=== PATIENT | female | born 1960 | race Caucasian/White ===

== ENCOUNTER → 2017-01-14 | Outpatient (CLI) | payer OTHER ==
[2014-10-18 19:39] VITALS: BP 114/58
[~2017-01-14] MED LIST: ALBU8.5H6 INH; ATROVENT HFA12.9 GM IH; BENZ100C PO; CARV3.122 PO; CYCL10TA2 PO; FLUT10.6 IH; GUAI600T47 PO; INSU100I16 SQ; LOSA100T6 PO; METF-620 PO; MOME13HF IH
--- NOTE | 2017-01-14 16:19 | RAD ---
EXAM: Chest 2 views. HISTORY: Cough, chronic obstructive pulmonary disease. COMPARISON: 10/18/2014. FINDINGS: Frontal and lateral views of the chest are obtained. There is hyperinflation without hemidiaphragmatic flattening. There are mild interstitial opacities in the bases. There is no pneumothorax or pleural effusion. The heart is not enlarged. Cholecystectomy clips are noted. IMPRESSION: 1. Hyperinflation without hemidiaphragmatic flattening. 2. Mild basilar interstitial opacities. Correlate for mild pulmonary edema or interstitial lung disease.
== END | disposition home or self-care (01) ==
LOC: RAD 12:58
PROVIDERS: ATTEND Internal Medicine
DX: J44.9 Chronic obstructive pulmonary disease, unspecified (principal); J98.11 Atelectasis
CPT/HCPCS: 71020

== ENCOUNTER → 2017-06-12 | Outpatient (CLI) | payer OTHER ==
[2014-10-18 19:39] VITALS: BP 114/58
--- NOTE | 2017-06-12 15:52 | RAD ---
2 view CXR: Clinical indications: Right-sided chest pain. Comparison: January 14, 2017 Findings: No acute lung infiltrate or pleural effusion or pulmonary edema or lung mass or pneumothorax is seen. The heart size, pulmonary vasculature, mediastinum and both brii are unremarkable. The osseous structures appear intact. Impression: No acute radiographic abnormality is seen.
--- NOTE | 2017-06-12 16:01 | RAD ---
EXAM: Right ribs 4 views. HISTORY: Right chest pain, fall. COMPARISON: 06/12/2017. FINDINGS: There are no displaced right rib fractures. There is no pneumothorax or pleural effusion. Glenohumeral osteoarthritis is mild. Acromioclavicular osteoarthritis is moderate. Cholecystectomy clips are noted. There are atherosclerotic calcifications of the aorta. IMPRESSION: 1. No displaced right rib fracture.
== END | disposition home or self-care (01) ==
LOC: RAD 12:26
PROVIDERS: ATTEND Internal Medicine
DX: I70.0 Atherosclerosis of aorta (principal); M19.011 Primary osteoarthritis, right shoulder; R07.81 Pleurodynia; Z91.81 History of falling
CPT/HCPCS: 71020; 71100

== ENCOUNTER → 2018-04-09 | Outpatient (CLI) | payer OTHER ==
[2014-10-18 19:39] VITALS: BP 114/58
[~2018-04-09] MED LIST changes: -LOSA100T6 PO; +LOSA100T7 PO; -METF-620 PO; +METF10007 PO
--- NOTE | 2018-04-09 14:21 | RAD ---
DATE: 04/09/2018 EXAM: MAMMO NICK SCREENING BILATERAL HISTORY: Routine screening COMPARISON: 11/25/2012 This study was interpreted with the benefit of Computerized Aided Detection (CAD). Breast Density: FATTY The breast parenchyma is primarily fatty replaced. Breast parenchyma level density A. FINDINGS: 2-D and 3-D tomosynthesis imaging was performed in CC and MLO projections. No new or enlarging breast densities are seen. Minimal benign type calcifications present. No suspicious microcalcifications have developed. IMPRESSION: Stable mammograms without evidence of malignancy. BI-RADS CATEGORY: 2 BENIGN FINDING(S) RECOMMENDED FOLLOW-UP: 12M 12 MONTH FOLLOW-UP PQRS compliance statement: Patient information was entered into a reminder system with a target due date for the next mammogram. Mammography is a sensitive method for finding small breast cancers, but it does not detect them all and is not a substitute for careful clinical examination. A negative mammogram does not negate a clinically suspicious finding and should not result in delay in biopsying a clinically suspicious abnormality. "Our facility is accredited by the [employer] Mammography Program."
== END | disposition home or self-care (01) ==
LOC: MAMMO 10:09
PROVIDERS: ATTEND Internal Medicine
DX: Z12.31 Encounter for screening mammogram for malignant neoplasm of breast (principal); M19.011 Primary osteoarthritis, right shoulder; J44.9 Chronic obstructive pulmonary disease, unspecified; Z88.1 Allergy status to other antibiotic agents
CPT/HCPCS: 77063; 77067

== ENCOUNTER 2018-08-08 14:14 | Emergency (ER) | payer OTHER ==
[~2018-08-08] VITALS: Ht 175.3 cm; Wt 102.1 kg
[~2018-08-08 14:14] MED LIST changes: +CARV3.1210 PO; -CARV3.122 PO; +LOSA100T14 PO; -LOSA100T7 PO
[2018-08-08] MEDS ORDERED: IPRATRPIUM/ALBUTEROL 0.5/2.5MG 3 ML NEBU. NEB ONE (14:30)
[2018-08-08 14:53] LABS: CALCIUM 8.4 mg/dL (8.5-10.1); CREATININE 1.1 mg/dL (0.6-1.0); GFR 51.4; POTASSIUM 3.6 mmol/L (3.5-5.1)
[2018-08-08 14:53] LABS: BASO % 1 % (0-3); EOS % 0 % (0-3); HEMATOCRIT 34.4 % (36.0-47.0); HEMOGLOBIN 12.7 g/dL (12.0-15.5); LYMPH # 0.9 x10^3/uL (1.0-4.8); LYMPH % 12 % (24-48); MEAN CORPUSCULAR HEMOGLOBIN 36 pg (25-35); MEAN CORPUSCULAR HGB CONC 37 g/dL (31-37); MEAN CORPUSCULAR VOLUME 98 fL (79-100); MONO # 0.7 x10^3/uL (0.0-1.1); MONO % 10 % (0-9); NEUT # 5.4 x10^3uL (1.8-7.7); NEUT % 77 % (31-73); PLATELET COUNT 215 x10^3/uL (140-400); RED BLOOD COUNT 3.53 x10^6/uL (3.50-5.40); RED CELL DISTRIBUTION WIDTH 15.2 % (11.5-14.5); WHITE BLOOD COUNT 6.9 x10^3/uL (4.0-11.0)
[2018-08-08 14:53] LABS: BASE EXCESS ABG 0 mmol/L (-3-3); HCO3 ABG 23 mmol/L (21-28); PCO2 ABG 32 mmHg (35-46); PO2 ABG 55 mmHg (75-108); SAT O2 ABG 91 % (92-99)
[2018-08-08 14:57] LABS: FIO2 ABG 21%
[2018-08-08 14:58] LABS: ALBUMIN 3.2 g/dL (3.4-5.0); ALBUMIN/GLOBULIN RATIO 0.7 (1.0-1.7); TOTAL BILIRUBIN 0.9 mg/dL (0.2-1.0); TOTAL PROTEIN 7.5 g/dL (6.4-8.2)
--- NOTE | 2018-08-08 15:04 | RAD ---
CHEST AP ONLY History: SHORT OF AIR. Comparison: June 12, 2017 Cardiomediastinal silhouette: Not grossly enlarged. Lungs: No focal airspace consolidation. Pleura: No evidence of pleural effusion. Pneumothorax: None visualized Support Devices: None Degenerative changes at the shoulders Impression: No evidence of consolidating infiltrate Electronically signed by: Perfecto Truong MD (08/08/2018 3:00 PM) [facility]
--- NOTE | 2018-08-08 15:34 | EKG ---
[facility] [address] [place] [address] Test Date: 2018-08-08 Test Time: 14:22:24 Pat Name: MERON DAVIS Department: Room: Gender: F [employer]: : 1960 Requested By: DANIEL CALVILLO Order Number: [id number] Reading MD: Rajeev Munson Measurements Intervals [place] Rate: 92 P: 56 CA: 160 QRS: 49 QRSD: 74 T: 43 QT: 346 QTc: 433 Interpretive Statements SINUS RHYTHM ATRIAL PREMATURE COMPLEX(ES) NONSPECIFIC ST-T WAVE CHANGES. Electronically Signed On 08-17-2018 10:25:38 [employer] by Rajeev Munson
[2018-08-08] MEDS ORDERED: FUROSEMIDE 40 MG/4 ML VIAL. IVP ONE (15:45)
[2018-08-08] MEDS ORDERED: ALBU2.5V8 INH (16:14)
[2018-08-08] MEDS ORDERED: CEPH-264 PO (16:14)
[2018-08-08] MEDS ORDERED: FURO-69 PO (16:14)
[2018-08-08] MEDS ORDERED: PRED50TA PO (16:14)
--- NOTE | 2018-08-08 16:14 | PHYS DOC ---
Past Medical History Past Medical History: COPD, Diabetes-Type II, Hypertension Past Surgical History: Cholecystectomy, , Hysterectomy, Other Additional Past Surgical Histo: D&C, bladder lift Alcohol Use: None Drug Use: None Adult General Chief Complaint Chief Complaint: SHORTNESS OF BREATH HPI HPI Patient is a 57 year old male with history of COPD presents with progressive shortness of breath over the past several days. Patient reports productive sputum with yellow-green mucus. Denies fever chills, nausea vomiting or sweats. Reports chest tightness denies chest pain. Does report increased fluid retention and peripheral edema. No nausea vomiting or sweats. No abdominal pain. No history of CAD, CHF, DVT or PE. No other acute symptoms or complaints. [] Review of Systems Review of Systems Review symptoms as per history of present illness. All other review symptoms are negative. All other systems were reviewed and found to be within normal limits, except as documented in this note. Current Medications Current Medications Current Medications Medications (Trade) Dose Ordered Sig/Gilbert Start Time Stop Time Status Last Admin Dose Admin Albuterol/ Ipratropium (Duoneb) 3 ml 1X ONCE 08/08/18 14:30 08/08/18 14:31 DC 08/08/18 14:47 3 ML Furosemide (Lasix) 40 mg 1X ONCE 08/08/18 15:45 08/08/18 15:46 DC Allergies Allergies Allergies Coded Allergies Type Severity Reaction Last Updated Verified Nitrofurantoin Macrocrystal Allergy Severe Hives 07/31/13 Yes doxycycline Allergy Severe Hives 07/31/13 Yes nitrofurantoin Allergy Severe Hives 07/31/13 Yes Penicillins Allergy Intermediate 03/25/14 Yes Physical Exam Physical Exam Constitutional: Well developed, well nourished, no acute distress, non-toxic appearance. [] HENT: Normocephalic, atraumatic, bilateral external ears normal, oropharynx moist, no oral exudates, nose normal. [] Eyes: PERRLA, EOMI. [] Neck: Normal range of motion, no tenderness. [] Cardiovascular:Heart rate regular rhythm. [] Lungs & Thorax: Patient's nonlabored diminished coarse rhonchi bilaterally with occasional rhonchi. No rales or wheezes.[] Abdomen: Bowel sounds normal, soft, no tenderness. [] Skin: Warm, dry. [] Back: No tenderness. [] Extremities: No tenderness, negative Homans sign. [] Neurologic: Alert and oriented X 3, normal motor function, normal sensory function, no focal deficits noted. [] Psychologic: Affect normal, judgement normal, mood normal. [] Current Patient Data Vital Signs Vital Signs Date Time Temp Pulse Resp B/P (MAP) Pulse Ox O2 Delivery O2 Flow Rate FiO2 08/08/18 14:47 94 Room Air 08/08/18 14:14 98.6 98 20 145/67 (93) 98.6 Lab Values Laboratory Tests Test 08/08/18 14:24 08/08/18 14:30 08/08/18 14:45 O2 Saturation 91 % (92-99) L Arterial Blood pH 7.47 (7.35-7.45) H Arterial Blood pCO2 at Patient Temp 32 mmHg (35-46) L Arterial Blood pO2 at Patient Temp 55 mmHg (75-108) L Arterial Blood HCO3 23 mmol/L (21-28) Arterial Blood Base Excess 0 mmol/L (-3-3) FiO2 21% Sodium Level 137 mmol/L (136-145) Potassium Level 3.6 mmol/L (3.5-5.1) Chloride Level 100 mmol/L (98-107) Carbon Dioxide Level 28 mmol/L (21-32) Anion Gap 9 (6-14) Blood Urea Nitrogen 8 mg/dL (7-20) Creatinine 1.1 mg/dL (0.6-1.0) H Estimated GFR (Cockcroft-Gault) 51.4 BUN/Creatinine Ratio 7 (6-20) Glucose Level 185 mg/dL (70-99) H Calcium Level 8.4 mg/dL (8.5-10.1) L Total Bilirubin 0.9 mg/dL (0.2-1.0) Aspartate Amino Transferase (AST) 23 U/L (15-37) Alanine Aminotransferase (ALT) 19 U/L (14-59) Alkaline Phosphatase 167 U/L (46-116) H Troponin I Quantitative < 0.017 ng/mL (0.000-0.055) UE-Dcn-S-Type Natriuretic Peptide 2461 pg/mL (0-124) H Total Protein 7.5 g/dL (6.4-8.2) Albumin 3.2 g/dL (3.4-5.0) L Albumin/Globulin Ratio 0.7 (1.0-1.7) L White Blood Count 6.9 x10^3/uL (4.0-11.0) Red Blood Count 3.53 x10^6/uL (3.50-5.40) Hemoglobin 12.7 g/dL (12.0-15.5) Hematocrit 34.4 % (36.0-47.0) L Mean Corpuscular Volume 98 fL (79-100) Mean Corpuscular Hemoglobin 36 pg (25-35) H Mean Corpuscular Hemoglobin Concent 37 g/dL (31-37) Red Cell Distribution Width 15.2 % (11.5-14.5) H Platelet Count 215 x10^3/uL (140-400) Neutrophils (%) (Auto) 77 % (31-73) H Lymphocytes (%) (Auto) 12 % (24-48) L Monocytes (%) (Auto) 10 % (0-9) H Eosinophils (%) (Auto) 0 % (0-3) Basophils (%) (Auto) 1 % (0-3) Neutrophils # (Auto) 5.4 x10^3uL (1.8-7.7) Lymphocytes # (Auto) 0.9 x10^3/uL (1.0-4.8) L Monocytes # (Auto) 0.7 x10^3/uL (0.0-1.1) Eosinophils # (Auto) 0.0 x10^3/uL (0.0-0.7) Basophils # (Auto) 0.0 x10^3/uL (0.0-0.2) Laboratory Tests 08/08/18 14:45 Laboratory Tests 08/08/18 14:30 EKG EKG EKG: Reviewed[] Radiology/Procedures Radiology/Procedures [CXR: NAD per radiology report] Course & Med Decision Making Course & Med Decision Making Pertinent Labs and Imaging studies reviewed. (See chart for details) [Acute COPD exacerbation with new onset congestive heart failure. Hospital admission offered for further cardiac evaluation, treatment and risk stratification. Patient verbalizes increased risks for premature discharge from the/hospital. She agrees to close follow-up with her PCP. Return precautions reviewed.] Dragon Disclaimer Dragon Disclaimer This electronic medical record was generated, in whole or in part, using a voice recognition dictation system. Departure Departure Impression: Primary Impression: Acute exacerbation of chronic obstructive airways disease Additional Impression: Congestive heart failure Disposition: 01 HOME, SELF-CARE Condition: IMPROVED Referrals: SAAD FOX MD (PCP) Patient Instructions: Chronic Obstructive Pulmonary Disease Exacerbation, Pulmonary Edema, [id number] Additional Instructions: You were evaluated emergency department for shortness of breath he related to combination of acute bronchitis, with COPD exacerbation and new onset congestive heart failure. It is important that you take current medications as directed and you follow up with your PCP in the next 2-3 days for reevaluation. In the meantime, return to the ED if new or worsening symptoms. Scripts Albuterol Sulfate (Proair Hfa) 8.5 Gm Hfa.aer.ad 1 PUFF INH PRN Q6HRS PRN for SHORTNESS OF BREATH for 7 Days, #1 INHALER Prov: DANIEL CALVILLO DO 08/08/18 Furosemide (LASIX) 20 Mg Tablet 1 TAB PO Q12HR, #10 TAB 1 Refill Prov: DANIEL CALVILLO DO 08/08/18 Prednisone (PREDNISONE) 50 Mg Tablet 1 TAB PO DAILY, #5 TAB Prov: DANIEL CALVILLO DO 08/08/18 Cephalexin (KEFLEX) 500 Mg Capsule 1 CAP PO TID, #30 CAP Prov: DANIEL CALVILLO DO 08/08/18 Problem Qualifiers DANIEL CALVILLO DO Aug 08, 2018 16:14
[2018-08-08 16:35] VITALS: BP 138/63
[2018-08-13] MEDS ORDERED: TRAM50TA PO (15:56)
[2018-08-15] MEDS ORDERED: PRED20TA PO (11:44)
[2018-08-15] MEDS ORDERED: AZIT250T6 PO (11:44)
== END 2018-08-08 16:45 | disposition home or self-care (01) ==
LOC: ER 14:14
DX: J44.1 Chronic obstructive pulmonary disease with (acute) exacerbation (principal); I11.0 Hypertensive heart disease with heart failure; I50.9 Heart failure, unspecified; E11.9 Type 2 diabetes mellitus without complications; Z88.0 Allergy status to penicillin; Z88.8 Allergy status to other drugs, medicaments and biological substances
CPT/HCPCS: 36415; 36600; 71045; 80053; 82805; 83880; 84484; 85025; 93005; 94640; 96374; 99284; J1940; J7620

== ENCOUNTER → 2018-12-04 | Outpatient (CLI) | payer OTHER ==
[2018-08-15 15:00] VITALS: BP 129/71
[~2018-12-04] MED LIST changes: +ALBU2.5V8 INH; +AZIT250T6 PO; +CEPH-264 PO; +FURO-69 PO; +PRED20TA PO; +PRED50TA PO; +TRAM50TA PO
--- NOTE | 2018-12-04 12:32 | RAD ---
Examination: CT chest without contrast HISTORY: History of lung nodule COMPARISON: 10/25/2013 TECHNIQUE: Axial CT images of the chest were performed without contrast. Coronal and sagittal reformats are performed. Exposure: One or more of the following individualized dose reduction techniques were utilized for this examination: 1. Automated exposure control 2. Adjustment of the mA and/or kV according to patient size 3. Use of iterative reconstruction technique FINDINGS: The central airways are patent. The heart size grossly appears unremarkable. Coronary artery calcifications identified. Few calcified mediastinal lymph nodes identified. Emphysematous changes identified in the right and left upper lobes of the lung. There is a 7 mm nodule identified in the left lower lobe of the lung abutting the pleura similar to prior exam. No evidence of pleural effusion or pneumothorax. The visualized noncontrasted liver, spleen, adrenals grossly appears unremarkable. Moderate degenerative changes thoracic spine. IMPRESSION: 1. 7 mm nodule identified in the left lower lobe of the lung abutting the pleura similar to prior exam. 2. Bilateral lung emphysematous changes. Electronically signed by: Jaun Eubanks MD (12/04/2018 12:29 PM) [id number]
== END | disposition home or self-care (01) ==
LOC: CT 11:45
PROVIDERS: ATTEND Internal Medicine Pulmonary Disease
DX: J43.8 Other emphysema (principal); R91.1 Solitary pulmonary nodule; I89.8 Other specified noninfective disorders of lymphatic vessels and lymph nodes; I25.10 Atherosclerotic heart disease of native coronary artery without angina pectoris; M47.894 Other spondylosis, thoracic region
CPT/HCPCS: 71250

== ENCOUNTER → 2019-02-17 | Outpatient (CLI) | payer OTHER ==
[2018-08-15 15:00] VITALS: BP 129/71
--- NOTE | 2019-02-17 14:34 | RAD ---
Ultrasound venous Doppler INDICATION:Left leg pain TECHNIQUE: Grayscale, color Doppler and spectral waveform ultrasound images of the left lower extremity deep veins obtained. COMPARISON: None FINDINGS: The interrogated deep veins are compressible and demonstrate evidence of blood flow with normal respiratory variation and response to augmentation. IMPRESSION: No sonographic evidence of acute DVT of the left lower extremity deep veins. Electronically signed by: Jaylen Young DO (02/17/2019 2:31 PM) [facility]
--- NOTE | 2019-02-17 14:55 | RAD ---
Indication: Pain. Fall TECHNIQUE: 3 views of the left foot COMPARISON: None Findings/ Impression: No dislocation. Small plantar and dorsal calcaneal spurs noted. Mild foot edema. Small calcific density adjacent to the medial malleolus may represent an avulsion fracture. Clinically correlate with focal tenderness. Electronically signed by: Jaylen Young DO (02/17/2019 2:52 PM) [facility]
== END | disposition home or self-care (01) ==
LOC: US 13:15
PROVIDERS: ATTEND Internal Medicine
DX: M77.32 Calcaneal spur, left foot (principal); M25.475 Effusion, left foot; W19.XXXA Unspecified fall, initial encounter; Y93.89 Activity, other specified; Y92.89 Other specified places as the place of occurrence of the external cause; Y99.8 Other external cause status
CPT/HCPCS: 73630; 93971

== ENCOUNTER → 2019-03-19 | Outpatient (CLI) | payer OTHER ==
[2018-08-15 15:00] VITALS: BP 129/71
[~2019-03-19] MED LIST changes: +CONTRAST GIVEN. MC PRN; +IOHEXOL 240 MG/ML 50ML VIAL. PO ONE; +IOHEXOL 300 MG/ML 100ML VIAL. IV ONE
--- NOTE | 2019-03-19 15:10 | RAD ---
EXAM: CT Abdomen and Pelvis with IV contrast CLINICAL HISTORY: Abdominal pain. COMPARISON: none TECHNIQUE: Helical CT of the abdomen and pelvis was performed following the administration of intravenous contrast. Axial, coronal and sagittal reformatted images were generated. PQRS compliance statement - One or more of the following individualized dose reduction techniques were utilized for this study: 1. Automated exposure control 2. Adjustment of the mA and/or kV according to patient size 3. Use of iterative reconstruction technique FINDINGS: Lower chest: Lung bases are clear. Abdomen and Pelvis: Hepatic hypoattenuation may be seen with hepatic steatosis. Calcified granuloma are seen within the liver and spleen. No focal liver lesion. Accounting for postcholecystectomy change, no biliary ductal dilatation. Pancreas is unremarkable. Adrenal glands are normal. Symmetric nephrograms. Nonobstructing right lower pole renal calculus measures 1.1 cm. No hydronephrosis. No hydroureter. Bilateral extrarenal pelves are seen. Moderate to large volume colonic stool content is seen. No evidence for bowel obstruction. No abdominal or pelvic ascites. No abdominal or pelvic lymphadenopathy. Dense atherosclerotic calcifications of the aorta are seen. There has been a hysterectomy. Bones: Decreased bone mineral density. Degenerative changes of the spine are seen. IMPRESSION: 1. Nonobstructing right lower pole renal calculus. No ureteral or bladder calculus. 2. No hydronephrosis or hydroureter. 3. No evidence of bowel obstruction. 4. Hepatic hypoattenuation likely hepatic steatosis. 5. Dense atherosclerotic calcifications of the aorta Electronically signed by: Alden Ross MD (03/19/2019 3:07 PM) [facility]
== END | disposition home or self-care (01) ==
LOC: CT 15:59
PROVIDERS: ATTEND Internal Medicine
DX: N20.0 Calculus of kidney (principal); K75.3 Granulomatous hepatitis, not elsewhere classified; D73.89 Other diseases of spleen; I70.0 Atherosclerosis of aorta; M47.819 Spondylosis without myelopathy or radiculopathy, site unspecified; J44.9 Chronic obstructive pulmonary disease, unspecified; I10 Essential (primary) hypertension; E11.9 Type 2 diabetes mellitus without complications; F17.200 Nicotine dependence, unspecified, uncomplicated; Z90.710 Acquired absence of both cervix and uterus; Z79.899 Other long term (current) drug therapy; Z88.8 Allergy status to other drugs, medicaments and biological substances
CPT/HCPCS: 74177; Q9966; Q9967

== ENCOUNTER 2020-03-14 13:27 | Emergency (ER) | payer OTHER ==
[~2020-03-14] VITALS: Ht 175.3 cm; Wt 102.3 kg
[~2020-03-14 13:27] MED LIST changes: -CONTRAST GIVEN. MC PRN; -IOHEXOL 240 MG/ML 50ML VIAL. PO ONE; -IOHEXOL 300 MG/ML 100ML VIAL. IV ONE
--- NOTE | 2020-03-14 13:46 | PHYS DOC ---
Past Medical History Past Medical History: COPD, Diabetes-Type II, Hypertension Past Surgical History: Cholecystectomy, , Hysterectomy, Other Additional Past Surgical Histo: D&C, bladder lift Smoking Status: Current Every Day Smoker Alcohol Use: None Drug Use: None COVID-19 Patient Risks: Age 65 or older: No Sign of co-morbidity: Yes Exp to person + for COVID: No Exp to PUI: No Travel from affected area: No Lower respiratory symptoms: Yes Fever: No Other: No PPE Use: Full PPE with N95 mask or PAPR: Yes General Adult EDM: Chief Complaint: CHEST PAIN HPI: HPI: Patient is a 59 year old female who presents with 2 weeks of increased shortness of breath, coughing up green mucus. She states her last 4 days she has been vomiting and having abdominal cramping that is generalized. She has epigastric tenderness with palpation. She denies any diarrhea or constipation. She states that she normally wears 3 L of oxygen when sitting but if she is up a nd walking she has to wear 6 L normally. She states that her chest is aching that is generalized. She has taken 81 mg aspirin. She states she has been taking all of her medications as prescribed. She states when she is up and moving it makes her shortness of breath and symptoms worsen. States that her pains are constant. She denies any blood in her vomit. She states that she does not have any blood in stools. She is rating her discomfort as an 8 out of 10. Patient has a history of COPD, CHF, smoker, lung nodule, diabetes, pneumonia, hypertension, hysterectomy, cholecystectomy, . Patient denies headache, dizziness, vision changes, new numbness or tingling, diarrhea, fever, syncope, focal weakness. Review of Systems: Review of Systems: Constitutional: Denies fever or chills. [] Eyes: Denies change in visual acuity. [] HENT: Denies nasal congestion or sore throat. [] Respiratory: cough or shortness of breath. [] Cardiovascular: chest pain or denies edema. [] GI: abdominal pain, nausea, vomiting, denies bloody stools or diarrhea. [] : Denies dysuria. [] Musculoskeletal: Denies back pain or joint pain. [] Integument: Denies rash. [] Neurologic: Denies headache, focal weakness or sensory changes. [] Endocrine: Denies polyuria or polydipsia. [] Lymphatic: Denies swollen glands. [] Psychiatric: Denies depression or anxiety. [] Heart Score: HEART Score for Chest Pain: HEART Score for Chest Pain Response (Comments) Value History Slighlty/Non-Suspicious 0 ECG Nonspecific Repolarizatio 1 Age >45 - < 65 1 Risk Factors >3 Risk Factors or Hx CAD 2 Troponin < Normal Limit 0 Total 4 Risk Factors: Risk Factors: DM, Current or recent (<one month) smoker, HTN, HLP, family history of CAD, obesity. Risk Scores: Score 0 - 3: 2.5% MACE over next 6 weeks - Discharge Home Score 4 - 6: 20.3% MACE over next 6 weeks - Admit for Clinical Observation Score 7 - 10: 72.7% MACE over next 6 weeks - Early Invasive Strategies Allergies: Allergies: Allergies Coded Allergies Type Severity Reaction Last Updated Verified Nitrofurantoin Macrocrystal Allergy Severe Hives 07/31/13 Yes doxycycline Allergy Severe Hives 07/31/13 Yes nitrofurantoin Allergy Severe Hives 07/31/13 Yes Penicillins Allergy Intermediate 03/25/14 Yes Physical Exam: PE: Constitutional: Well developed, well nourished, no acute distress, non-toxic appearance. [] HENT: Normocephalic, atraumatic, bilateral external ears normal, oropharynx moist, no oral exudates, nose normal. [] Eyes: PERRLA, EOMI, conjunctiva normal, no discharge. [] Neck: Normal range of motion, no tenderness, supple, no stridor. [] Cardiovascular:Heart rate regular rhythm, no murmur [] Lungs & Thorax: Bilateral breath sounds diminished to auscultation [] Abdomen: Bowel sounds normal, soft, epigastric tenderness, no masses, no pulsatile masses. [] Skin: Warm, dry, no erythema, no rash. [] Back: No tenderness, no CVA tenderness. [] Extremities: No tenderness, no cyanosis, no clubbing, ROM intact, no edema. [] Neurologic: Alert and oriented X 3, normal motor function, normal sensory function, no focal deficits noted. [] Psychologic: Affect normal, judgement normal, mood normal. [] EKG: EK and read by Dr Martínez as Sinus rhythm and no STEMI[] Radiology/Procedures: Radiology/Procedures: [] Impression: [facility] [id number] [place] [address] IMAGING REPORT Signed PATIENT: MERON DAVIS ACCOUNT: [id number] : 1960 LOCATION: ER AGE: 59 SEX: F EXAM STATUS: REG ER ORD. PHYSICIAN: KATEY PORTER APRN REASON: chest pain, soa PROCEDURE: PORTABLE CHEST 1V PORTABLE CHEST 1V History: Reason: chest pain, soa / Spl. Instructions: / History: Comparison: January 11, 2019 Findings: No consolidation or pleural effusion. Normal heart size. No pneumothorax. Impression: 1. No acute cardiopulmonary process. Electronically signed by: John Rodriguez DO (03/14/2020 4:09 PM) [id number] DICTATED and SIGNED BY: JOHN RODRIGUEZ DO DATE: 03/14/[address] [address] IMAGING REPORT Signed PATIENT: MERON DAVIS ACCOUNT: [id number] : 1960 LOCATION: ER AGE: 59 SEX: F EXAM STATUS: REG ER ORD. PHYSICIAN: KATEY PORTER APRN REASON: ABD PAIN, TENDERNESS, VOMITING PROCEDURE: CT ABD PELV W/ IV CONTRST ONLY INDICATION: Reason: ABD PAIN, TENDERNESS, VOMITING / COMPARISON: March 19, 2019 TECHNIQUE: Axial CT images obtained through the abdomen and pelvis with contrast. One or more of the following individualized dose reduction techniques were utilized for this examination: 1. Automated exposure control; 2. Adjustment of the mA and/or kV according to patient size; 3. Use of iterative reconstruction technique. FINDINGS: Left lung base nodules again seen and similar to prior. Coronary artery calcific atherosclerosis. Atherosclerotic disease throughout the vasculature. Liver is low density. Postcholecystectomy changes. No peripancreatic fluid collection. Splenic calcified granulomas. There is some rotation of the left kidney without left-sided hydronephrosis. Urinary bladder is partially distended. Nonobstructive right renal stone measuring up to about 7 mm. There is some distention of the right extrarenal pelvis. Urinary bladder is partially distended. Small fat-containing umbilical hernia. No periappendiceal inflammatory changes. No dilated loops of bowel suggest obstruction. Degenerative changes of the spine. Multilevel central canal and neural foraminal stenosis. Grade 1 anterolisthesis of L4 on 5. Mild haziness of fat in the upper abdomen adjacent to the stomach IMPRESSION: * Mild haziness in the fat in the upper abdomen adjacent to the stomach. Correlate with symptoms in the region since causes such as gastritis or ulcer could have this appearance. There are some adjacent mildly prominent lymph nodes. * Liver is low density. Nonspecific but can be seen with fatty infiltration. * Nonobstructive right renal stone with mild distention of the right extrarenal pelvis. * calcific atherosclerosis. Electronically signed by: Bird Devine MD (03/14/2020 4:28 PM) [id number] DICTATED and SIGNED BY: BIRD DEVINE MD DATE: 03/14/201627 Course & Med Decision Making: Course & Med Decision Making Pertinent Labs and Imaging studies reviewed. (See chart for details) COVID-19 CRITERIA: The patient was evaluated during the global COVID-19 pandemic, and that diagnosis was suspected/considered upon their initial presentation. Their evaluation, treatment and testing was consistent with current guidelines for patients who present with complaints or symptoms that may be related to COVID-19. See HPI. Lungs are clear in upper lobes but diminished in lower lobes. Abdomen is soft but tender at epigastric area. No extremity edema. Skin pink warm and dry. Patient speaks in full clear sentences. Alert and oriented x4. IMPRESSION: * Mild haziness in the fat in the upper abdomen adjacent to the stomach. Correlate with symptoms in the region since causes such as gastritis or ulcer could have this appearance. There are some adjacent mildly prominent lymph nodes. * Liver is low density. Nonspecific but can be seen with fatty infiltration. * Nonobstructive right renal stone with mild distention of the right extrarenal pelvis. * calcific atherosclerosis. Patient was able to eat ice chips and did not vomit. She states that she is no longer nauseated. She states she does have some burning in her epigastric area. I have ordered Protonix IV push for her. Patient states the shortness of b reath is much better and she is on 3 L of oxygen satting at 95%. With reexamination patient's lungs are clear and there is no wheezing and she has good air movement. Patient speaks in full complete sentences. Patient is offered admission but refuses and states that she wants to go home. Patient will be sent home with a Medrol Dosepak and Protonix and nausea medicine. Patient is educated that if she begins to vomit again and cannot keep down any fluids or begins having severe shortness of breath that she needs to return and she will likely be admitted. States her understanding. Patient's chest x-ray shows no acute findings. I asked the patient if she needed any more nebulizer solution or inhaler and she states that she has enough. Patient denies any chest tightness or pain. She states the chest tightness has resolved. Patient is stable and needs to follow-up with her primary care physician. I spoke to Dr Fox and let him know about the patient her symptoms and the findings. I told him that the patient refused any kind of admission. He states he agrees with my care plan. [] Dragon Disclaimer: Dragon Disclaimer: This electronic medical record was generated, in whole or in part, using a voice recognition dictation system. Departure Departure Impression: Primary Impression: COPD exacerbation Additional Impression: Gastritis Qualified Codes: K29.00 - Acute gastritis without bleeding Disposition: HOME, SELF-CARE Condition: STABLE Referrals: SAAD FOX MD (PCP) Patient Instructions: Chronic Obstructive Pulmonary Disease Exacerbation, Gastritis, Adult Additional Instructions: Follow-up with your primary care physician soon as possible. Take medications as prescribed. Slowly advance your diet. Eat bland foods to help your stomach. If you begin having severe shortness of breath, severe chest pain or cannot stop vomiting return to the emergency room. Scripts Pantoprazole Sodium (PROTONIX) 20 Mg Tablet.dr 1 TAB PO DAILY, #30 TAB Prov: KATEY PORTER [employer] 03/14/20 Ondansetron (ONDANSETRON ODT) 4 Mg Tab.rapdis 1 TAB PO PRN Q6-8HRS, #16 TAB Prov: KATEY PORTER [employer] 03/14/20 Methylprednisolone (MEDROL) 4 Mg Tab.ds.pk 1 PKG PO UD, #1 PKG Prov: KATEY PORTER APRN 03/14/20 Justicifation of Admission Dx: Justifications for Admission: Justification of Admission Dx: N/A KATEY PORTER APRN Mar 14, 2020 13:46
[2020-03-14] MEDS ORDERED: ASPIRIN 325 MG TABLET PO ONE (14:00)
[2020-03-14] MEDS ORDERED: ONDANSETRON PF 4 MG/2 ML VIAL. IVP ONE (14:00)
[2020-03-14] MEDS ORDERED: fentaNYL PF VIAL 100 MCG/2 ML VIAL IVP ONE (14:00)
[2020-03-14] MEDS ORDERED: IV NORMAL SALINE 500ML BAG 500 ML IV ONE (14:00)
[2020-03-14] MEDS ORDERED: ALBUTEROL SULFATE 2.5 MG/3 ML NEBU. NEB ONE (14:00)
[2020-03-14] MEDS ORDERED: methylPREDNISolone SOD SUCC PF 125 MG/2 ML VIAL. IV ONE (14:00)
[2020-03-14 14:14] LABS: CALCIUM 8.7 mg/dL (8.5-10.1); CREATININE 1.1 mg/dL (0.6-1.0); POTASSIUM 3.5 mmol/L (3.5-5.1)
[2020-03-14 14:15] LABS: BASE EXCESS COOX -1 mmol/L (-3-3); HCO3 COOX 23 mmol/L (21-28); METHEMOGLOBIN 0.2 % (0.0-1.9); OXYHEMOGLOBIN 90.5 %; PCO2 COOX 35 mmHg (35-46); PO2 COOX 66 mmHg (75-108); SAT O2 COOX 94 % (92-99)
[2020-03-14 14:15] LABS: BASO % 0 % (0-3); EOS % 0 % (0-3); HEMATOCRIT 40.6 % (36.0-47.0); HEMOGLOBIN 14.4 g/dL (12.0-15.5); LYMPH # 1.9 x10^3/uL (1.0-4.8); LYMPH % 18 % (24-48); MEAN CORPUSCULAR HEMOGLOBIN 36 pg (25-35); MEAN CORPUSCULAR HGB CONC 36 g/dL (31-37); MEAN CORPUSCULAR VOLUME 101 fL (79-100); MONO # 0.6 x10^3/uL (0.0-1.1); MONO % 5 % (0-9); NEUT # 8.2 x10^3/uL (1.8-7.7); NEUT % 76 % (31-73); PLATELET COUNT 266 x10^3/uL (140-400); RED BLOOD COUNT 4.03 x10^6/uL (3.50-5.40); RED CELL DISTRIBUTION WIDTH 14.9 % (11.5-14.5); WHITE BLOOD COUNT 10.7 x10^3/uL (4.0-11.0)
[2020-03-14 14:20] LABS: ALBUMIN 3.3 g/dL (3.4-5.0); ALBUMIN/GLOBULIN RATIO 0.9 (1.0-1.7); TOTAL BILIRUBIN 0.8 mg/dL (0.2-1.0)
--- NOTE | 2020-03-14 14:21 | EKG ---
[facility] [address] [place] [address] Test Date: 2020-03-14 Test Time: 13:33:40 Pat Name: MERON DAVIS Department: Room: Gender: F Dental Intern: WERNER : 1960 Requested By: KATEY PORTER Order Number: [id number] Reading MD: Measurements Intervals [place] Rate: 83 P: 90 [place]: 146 QRS: 49 QRSD: 80 T: 61 QT: 372 QTc: 443 Interpretive Statements SINUS RHYTHM ATRIAL PREMATURE COMPLEX(ES) OTHERWISE NORMAL ECG RI6.02 No previous ECG available for comparison
[2020-03-14] MEDS ORDERED: CONTRAST GIVEN. MC PRN (14:30)
[2020-03-14] MEDS ORDERED: IOHEXOL 300 MG/ML 100ML VIAL. IV ONE (14:30)
--- NOTE | 2020-03-14 16:12 | RAD ---
PORTABLE CHEST 1V History: Reason: chest pain, soa / Spl. Instructions: / History: Comparison: January 11, 2019 Findings: No consolidation or pleural effusion. Normal heart size. No pneumothorax. Impression: 1. No acute cardiopulmonary process. Electronically signed by: John Rodrgiuez DO (03/14/2020 4:09 PM) [id number]
--- NOTE | 2020-03-14 16:31 | RAD ---
INDICATION: Reason: ABD PAIN, TENDERNESS, VOMITING / COMPARISON: March 19, 2019 TECHNIQUE: Axial CT images obtained through the abdomen and pelvis with contrast. One or more of the following individualized dose reduction techniques were utilized for this examination: 1. Automated exposure control; 2. Adjustment of the mA and/or kV according to patient size; 3. Use of iterative reconstruction technique. FINDINGS: Left lung base nodules again seen and similar to prior. Coronary artery calcific atherosclerosis. Atherosclerotic disease throughout the vasculature. Liver is low density. Postcholecystectomy changes. No peripancreatic fluid collection. Splenic calcified granulomas. There is some rotation of the left kidney without left-sided hydronephrosis. Urinary bladder is partially distended. Nonobstructive right renal stone measuring up to about 7 mm. There is some distention of the right extrarenal pelvis. Urinary bladder is partially distended. Small fat-containing umbilical hernia. No periappendiceal inflammatory changes. No dilated loops of bowel suggest obstruction. Degenerative changes of the spine. Multilevel central canal and neural foraminal stenosis. Grade 1 anterolisthesis of L4 on 5. Mild haziness of fat in the upper abdomen adjacent to the stomach IMPRESSION: * Mild haziness in the fat in the upper abdomen adjacent to the stomach. Correlate with symptoms in the region since causes such as gastritis or ulcer could have this appearance. There are some adjacent mildly prominent lymph nodes. * Liver is low density. Nonspecific but can be seen with fatty infiltration. * Nonobstructive right renal stone with mild distention of the right extrarenal pelvis. * calcific atherosclerosis. Electronically signed by: Austyn Lao MD (03/14/2020 4:28 PM) [id number]
[2020-03-14 17:04] LABS: BILIRUBIN,URINE SMALL (NEG); CLARITY,URINE CLEAR; COLOR,URINE YELLOW; NITRITE,URINE NEGATIVE (NEG); PROTEIN,URINE NEGATIVE (NEG-TRACE)
[2020-03-14] MEDS ORDERED: PANTOPRAZOLE IV PUSH 40 MG VIAL. IVP ONE (17:15)
[2020-03-14 17:27] VITALS: BP 131/76
[2020-03-14] MEDS ORDERED: ONDA4TAB12 PO (17:44)
[2020-03-14] MEDS ORDERED: PANT20TA2 PO (17:44)
[2020-03-14] MEDS ORDERED: METH4TAB2 PO (17:44)
[2020-03-14 17:53] LABS: RBC,URINE 20-40 /HPF (0-2); WBC,URINE 20-40 /HPF (0-4)
[2020-03-14 17:54] LABS: BACTERIA,URINE MODERATE /HPF (0-FEW); SQUAMOUS EPITHELIAL CELL,UR MOD /LPF
--- NOTE | 2020-03-15 15:45 | NUR ---
IP: Informed pt of negative COVID test. Pt verbalized understanding.
== END 2020-03-14 18:01 | disposition home or self-care (01) ==
LOC: ER 13:27
DX: J44.1 Chronic obstructive pulmonary disease with (acute) exacerbation (principal); K29.00 Acute gastritis without bleeding; Z20.828 Contact with and (suspected) exposure to other viral communicable diseases; E11.9 Type 2 diabetes mellitus without complications; I10 Essential (primary) hypertension; F17.200 Nicotine dependence, unspecified, uncomplicated; Z90.49 Acquired absence of other specified parts of digestive tract
CPT/HCPCS: 36415; 36600; 71045; 74177; 80053; 81001; 82805; 83690; 83880; 84484; 85025; 87077; 87086; 87186; 93005; 94640; 96361; 96374; 96375; 99285; C9113; J2405; J2930; J3010; J7040; Q9967; U0003; J7613

== ENCOUNTER → 2021-01-11 | Outpatient (CLI) | payer OTHER ==
[~2021-01-11] MED LIST changes: +METH4TAB2 PO; +ONDA4TAB12 PO; +PANT20TA2 PO
--- NOTE | 2021-01-11 11:04 | RAD ---
CT THORAX WO INDICATION: LUNG NODULE COMPARISON STUDY: 12/04/2018. TECHNIQUE: Unenhanced axial images were obtained through the lungs and upper abdomen. Coronal and sa gittal multiplanar reconstructions were also obtained. PQRS compliance statement: One or more of the following individualized dose reduction techniques were utilized for this examinat ion: 1. Automated exposure control 2. Adjustment of the mA and/or kV according to patient size 3. Use of iterative reconstruction technique FINDINGS: Lungs and Airways: No pulmonary mass or consolidation. Stable left lower lobe subpleural nodule measu ring 7 mm (series 8 image 255). Paraseptal and centrilobular emphysema. Normal central airways. Pleura: The pleural spaces are normal. Heart and Mediastinum: The visualized thyroid gland is normal in size and attenuation. No axillary or supraclavicular lymphadenopathy. No mediastinal, hilar or retrocrural lymphadenopathy. Calcified med iastinal and hilar lymph nodes consistent with remote granulomatous disease. Normal cardiac size. No pericardial effusion. Coronary artery atherosclerotic disease. Atherosclerosis of the thoracic aorta. . Abdomen: Cholecystectomy. Calcified hepatic and splenic granulomas.. Bones and Soft Tissues: Degenerative changes of the spine. IMPRESSION: 1. Left lower lobe nodule demonstrates greater than two-year stability and is presumed benign. 2. Coronary artery atherosclerotic disease. Electronically signed by: Delfino Adkins MD (01/11/2021 11:01 AM) [id number]
--- NOTE | 2021-01-11 13:31 | RAD ---
EXAM: BILATERAL DIGITAL SCREENING MAMMOGRAPHY. HISTORY: Routine mammographic screening. TECHNIQUE: Bilateral full field digital images were obtained in CC and MLO projections. Computer-aide d detection was applied. COMPARISON: 04/09/2018, 11/25/2012. COMPOSITION: A. The breasts are almost entirely fatty. FINDINGS: A coarse calcification on the right is stable and benign. There are no suspicious masses, m icrocalcifications or architectural distortion. The parenchymal pattern is stable. BI-RADS CATEGORY 2: Benign. RECOMMENDATION: 1. Routine screening mammography in one year. If mammography demonstrates dense breast tissue (heterogenously dense or extremely dense, category C or D), which could hide abnormalities, and if other risk factors for breast cancer have been identifi ed, supplemental screening tests that may be suggested by the ordering physician may be of benefit. D ense breast tissue, in and of itself, is a relatively common condition. Therefore, this information i s not provided to cause undue concern, but rather to raise awareness and to promote discussion with t he referring physician regarding the presence of other risk factors, in addition to dense breast tiss ue. The results of this mammography examination is provided to the patient and referring physician. T he patient should contact their referring physician if any questions or concerns exist regarding this report. PQRS compliance statement - Patient information was entered into a reminder system with a target due date for the next mammogram. "Our facility is accredited by the [employer] Mammography Program." Electronically signed by: Chelsea Lozano MD (01/11/2021 1:29 PM) [id number]
== END ==
LOC: CT 10:01
PROVIDERS: ATTEND Internal Medicine
DX: Z12.31 Encounter for screening mammogram for malignant neoplasm of breast (principal); R91.1 Solitary pulmonary nodule; I25.10 Atherosclerotic heart disease of native coronary artery without angina pectoris
CPT/HCPCS: 71250; 77067

== ENCOUNTER 2021-07-03 13:23 | Inpatient (IN) | payer OTHER ==
[~2021-07-03] VITALS: Ht 172.7 cm; Wt 93.0 kg
[~2021-07-03 13:23] MED LIST changes: +CYCL10TA19 PO; -CYCL10TA2 PO
[2021-07-03] MEDS ORDERED: CONTRAST GIVEN. MC PRN (14:00)
[2021-07-03] MEDS ORDERED: IOHEXOL 300 MG/ML 100ML VIAL. IV ONE (14:00)
--- NOTE | 2021-07-03 14:01 | PHYS DOC ---
Past Medical History Past Medical History: CHF, COPD, Diabetes-Type II, Hypertension (LIZZETTE KNOX Julianne COBBLER UPPER) Past Surgical History: Cholecystectomy, , Hysterectomy, Other Additional Past Surgical Histo: D&C, bladder lift (LIZZETTE KNOX Julianne COBBLER UPPER) Smoking Status: Current Every Day Smoker Alcohol Use: None Drug Use: None (LIZZETTE KNOX Julianne COBBLER UPPER) General Adult EDM: Chief Complaint: NEURO SYMPTOMS/DEFICITS HPI: HPI: Patient is a 60 year old female history of COPD current smoker on oxygen 2 L prn, hypertension, diabetes type 2, CHF, who presents to the ED today complaining of left upper extremity weakness, patient states symptoms began 3 hours ago. Patient states she noted symptoms while she tried doing her activities at home. She states the left upper extremity was weaker and she was unable to to comb her hair or lift her grandchildren. Patient denies any headache, chest pain or shortness of breath. Patient is also complaining of shortness of breath, patient states symptoms have been going on for "a couple w eeks." Patient denies any fever. Reports chronic cough. (LIZZETTE KNOX Julianne COBBLER UPPER) Review of Systems: Review of Systems: Constitutional: Denies fever or chills. [] Eyes: Denies change in visual acuity. [] HENT: Denies nasal congestion or sore throat. [] Respiratory: Reports cough and shortness of breath. [] Cardiovascular: Denies chest pain or edema. [] GI: Denies abdominal pain, nausea, vomiting, bloody stools or diarrhea. [] : Denies dysuria. [] Musculoskeletal: Denies back pain or joint pain. [] Integument: Denies rash. [] Neurologic: Reports left upper extremity weakness. Denies headache, focal weakness or sensory changes. [] Psychiatric: Denies depression or anxiety. [] (ALIYAHLIZZETTE Babcock COBBLER UPPER) Heart Score: C/O Chest Pain: N/A Risk Factors: Risk Factors: DM, Current or recent (<one month) smoker, HTN, HLP, family history of CAD, obesity. Risk Scores: Score 0 - 3: 2.5% MACE over next 6 weeks - Discharge Home Score 4 - 6: 20.3% MACE over next 6 weeks - Admit for Clinical Observation Score 7 - 10: 72.7% MACE over next 6 weeks - Early Invasive Strategies (LIZZETTE KNOX APRN) Current Medications: Current Medications Medications (Trade) Dose Ordered Sig/Gilbert Start Time Stop Time Status Last Admin Dose Admin Iohexol (Omnipaque 300 Mg/ml) 75 ml 1X ONCE 07/03/21 14:00 07/03/21 14:01 UNV (LIZZETTE KNOX APRN) Allergies: Allergies: Allergies Coded Allergies Type Severity Reaction Last Updated Verified Nitrofurantoin Macrocrystal Allergy Severe Hives 07/31/13 Yes doxycycline Allergy Severe Hives 07/31/13 Yes nitrofurantoin Allergy Severe Hives 07/31/13 Yes Penicillins Allergy Intermediate 03/25/14 Yes (LIZZETTE KNOX APRN) Physical Exam: PE: Constitutional: Well developed, well nourished, no acute distress, non-toxic appearance. [] HENT: Normocephalic, atraumatic, bilateral external ears normal, oropharynx moist, no oral exudates, nose normal. [] Eyes: PERRLA, EOMI, conjunctiva normal, no discharge. [] Neck: Normal range of motion, no tenderness, supple, no stridor. [] Cardiovascular: Tachycardic Lungs & Thorax: Coarse lung sounds Abdomen: Bowel sounds normal, soft, no tenderness, no masses, no pulsatile masses. [] Skin: Warm, dry, no erythema, no rash. [] Back: No tenderness, no CVA tenderness. [] Extremities: No tenderness, no cyanosis, no clubbing, ROM intact, no edema. [] Neurologic: Alert and oriented X 3, normal motor function, normal sensory function, no focal deficits noted. Cranial nerves II through XII intact, 5/5 strength to the right upper extremity, 2/5 strength to the left upper extremity. Psychologic: Affect normal, judgement normal, mood normal. [] (LIZZETTE KNOX APRN) Current Patient Data: Labs: Laboratory Tests Test 07/03/21 13:48 Glucose (Fingerstick) 178 mg/dL (70-99) H (LIZZETTE KNOX COBBLER UPPER) EKG: EKG: [] (LIZZETTE KNOX COBBLER UPPER) Radiology/Procedures: Radiology/Procedures: [] (LIZZETTE KNOX APRN) Course & Med Decision Making: Course & Med Decision Making Pertinent Labs and Imaging studies reviewed. (See chart for details) This is a 60-year-old female patient presenting to the ED today complaining of left upper extremity weakness that began 3 hours ago. Patient was activated as a code stroke. She is within the TPA window. Dr. Shannon also evaluated patient Patient is also complaining of shortness of breath and a cough for weeks. 1411 Dr. Shannon talking to Neurologist. He took over patient's care. (LIZZETTE KNOX COBBLER UPPER) Course & Med Decision Making Is a 60-year-old right handed female who presents with left arm weakness starting at 11 AM this morning (LKW time). Exam shows profound left arm weakness, but no dysarthria, aphasia, sensory deficits, ataxia. NIH = 3, but legs are symmetrically weak with mild drift. She is not on any blood thinning medications. CT head without acute hemorrhage. CTA head/neck without LVO. Discussed with neurologist, Dr. Scott, who recommended administration of TPA pending INR and platelet results. Discussed with patient including risk for ICH, and she declined the treatment stating she would rather live with the deficit than risk intracranial hemorrhage. She is agreeable with admission for telemetry, echo, PT/OT, further stroke work up. 1432 Admitted under PCP, Dr. Fox, who requested Aspirin. 1452 (ADRIANA SHANNON MD) Dragon Disclaimer: Dragon Disclaimer: This electronic medical record was generated, in whole or in part, using a voice recognition dictation system. (LIZZETTE KNOX APRN) NIHSS Stroke Scale NIH Stroke Scale: NIH Stroke Scale Response (Comments) Value Level of Consciousness: 0 Alert/Responsive 0 LOC Questions: 0 Answers both correctly 0 Best Gaze: 0 Normal 0 Visual: 0 No visual loss 0 Facial Palsy: 0 Normal, symmetrical 0 Motor - Left Arm 1 Drifts, but can hold 1 Motor - Right Arm 0 No drift 0 Motor - Left Leg 1 Drift but can hold 1 Motor: Right Leg 1 Drift but can hold 1 Limb Ataxia: 0 Absent 0 Sensory: 0 No loss 0 Best Language: 0 Normal 0 Dysathria: 0 Normal 0 Extinction and Inattention: 0 Normal 0 Total 3 NIH Stroke Scale: NIH Stroke Scale Response (Comments) Value Level of Consciousness: 0 Alert/Responsive 0 LOC Questions: 0 Answers both correctly 0 LOC Commands: 0 Performs both tasks 0 Best Gaze: 0 Normal 0 Visual: 0 No visual loss 0 Facial Palsy: 0 Normal, symmetrical 0 Motor - Left Arm 1 Drifts, but can hold 1 Motor - Right Arm 0 No drift 0 Motor - Left Leg 1 Drift but can hold 1 Motor: Right Leg 1 Drift but can hold 1 Limb Ataxia: 0 Absent 0 Sensory: 0 No loss 0 Best Language: 0 Normal 0 Dysathria: 0 Normal 0 Extinction and Inattention: 0 Normal 0 Total 3 Departure Departure Impression: Primary Impression: Stroke Qualified Codes: I63.9 - Cerebral infarction, unspecified Additional Impressions: Left arm weakness Shortness of breath Disposition: ADMITTED INPATIENT Admitting Physician: Audi Fox (ADRIANA SHANNON MD) Condition: STABLE Referrals: AUDI FOX MD (PCP) LIZZETTE KNOX APRN Jul 03, 2021 14:01 ADRIANA SHANNON MD Jul 03, 2021 14:33
--- NOTE | 2021-07-03 14:07 | RAD ---
EXAMINATION: CT STROKE HEAD W/O CLINICAL HISTORY: Left arm weakness TECHNIQUE: Serial axial images without IV contrast were obtained from the vertex to the foramen magnu m. CT Dose Reduction Employed: One or more of the following individualized dose reduction techniques won e utilized for this examination: 1. Automated exposure control 2. Adjustment of the mA and/or kV ac cording to patient size 3. Use of iterative reconstruction technique. COMPARISON: None FINDINGS: Acute Change: No evidence of an acute infarct or other acute parenchymal process. Hemorrhage: No evidence of acute intracranial hemorrhage. Mass Lesion/Mass Effect: No evidence of intracranial mass or extraaxial fluid collection. No signific ant mass effect. Chronic Change: Scattered patchy foci of hypoattenuation in the supratentorial white matter, nonspeci fic but likely represents mild microvascular ischemia. Atherosclerotic calcification of the intracran ial portion of the bilateral internal carotid arteries. Parenchyma: Mild generalized volume loss. Ventricles: Ventricular enlargement concordant with degree of parenchymal volume loss. Paranasal Sinuses and Skull Base: Partially visualized minimal secretions in the right maxillary sinu s. Visualized skull base and soft tissues unremarkable. IMPRESSION: No evidence of acute intracranial abnormality. Findings discussed with ED physician ,Chris Evans, at 07/03/2021 2:00 PM. Electronically signed by: Keith Ruiz DO (07/03/2021 2:05 PM) [id number]
--- NOTE | 2021-07-03 14:17 | RAD ---
EXAMINATION: CTA HEAD AND NECK W/WO CONTRAST CLINICAL HISTORY: Code stroke TECHNIQUE: Spiral high resolution axial images were obtained through the head, neck and superior medi astinum following bolus administration of intravenous contrast for CT angiography. 3D maximum intensi ty projection images also performed. CT Dose Reduction Employed: One or more of the following individualized dose reduction techniques wer e utilized for this examination: 1. Automated exposure control 2. Adjustment of the mA and/or kV ac cording to patient size 3. Use of iterative reconstruction technique. COMPARISON: None FINDINGS: BRAIN: No evidence of acute ischemic stroke or intracranial hemorrhage. NECK: Soft Tissues: Unremarkable. Spine: No significant degenerative changes. Lung Apices: Centrilobular emphysematous changes. CT ARTERIOGRAM: Extracranial Circulation: Aortic Arch: Normal branching pattern from the aortic arch. No significant stenosis in the proximal b rachiocephalic vessels. Carotid Stenosis: Right Common: No significant stenosis. Right Internal Carotid Plaque: Mild calcified plaque at the carotid bifurcation. Right Internal Carotid Stenosis (% by NASCET Criteria): No significant stenosis. Left Common: No significant stenosis. Left Internal Carotid Plaque: Mild calcified plaque at the carotid bifurcation and proximal internal carotid artery. Left Internal Carotid Stenosis (% by NASCET Criteria): No significant stenosis. Cervical Vertebral Arteries: Patency: Bilateral Dominance: Codominant Intracranial Circulation: Anterior Circulation: No evidence of large vessel occlusion. Vertebrobasilar Circulation: No evidence of large vessel occlusion. IMPRESSION: No evidence of large vessel occlusion or significant carotid arterial stenosis. Findings discussed with ED physician, Chris Evans, at 07/03/2021 2:12 PM. Electronically signed by: Keith Ruiz DO (07/03/2021 2:15 PM) [id number]
[2021-07-03 14:20] LABS: BASO % 0 % (0-3); EOS % 0 % (0-3); HEMATOCRIT 40.1 % (36.0-47.0); HEMOGLOBIN 14.1 g/dL (12.0-15.5); LYMPH # 1.6 x10^3/uL (1.0-4.8); LYMPH % 15 % (24-48); MEAN CORPUSCULAR HEMOGLOBIN 35 pg (25-35); MEAN CORPUSCULAR HGB CONC 35 g/dL (31-37); MEAN CORPUSCULAR VOLUME 99 fL (79-100); MONO # 0.9 x10^3/uL (0.0-1.1); MONO % 8 % (0-9); NEUT # 8.2 x10^3/uL (1.8-7.7); NEUT % 77 % (31-73); PLATELET COUNT 247 x10^3/uL (140-400); RED BLOOD COUNT 4.07 x10^6/uL (3.50-5.40); RED CELL DISTRIBUTION WIDTH 12.6 % (11.5-14.5); WHITE BLOOD COUNT 10.7 x10^3/uL (4.0-11.0)
[2021-07-03 14:40] LABS: CALCIUM 8.6 mg/dL (8.5-10.1); CREATININE 1.1 mg/dL (0.6-1.0); GFR 50.8; POTASSIUM 3.4 mmol/L (3.5-5.1)
[2021-07-03 14:42] LABS: ALBUMIN/GLOBULIN RATIO 0.6 (1.0-1.7); MAGNESIUM 1.9 mg/dL (1.8-2.4); TOTAL BILIRUBIN 1.3 mg/dL (0.2-1.0); TOTAL PROTEIN 7.7 g/dL (6.4-8.2)
--- NOTE | 2021-07-03 14:44 | RAD ---
Single AP view of the chest. Comparison: 03/14/2020. Indication: Code stroke and shortness of air Findings: Lungs appear hyperexpanded. The heart is not enlarged. There is no pneumothorax or effusion. No air space or interstitial disease. Impression: 1. No acute cardiopulmonary process. Electronically signed by: Tab Vila MD (07/03/2021 2:41 PM) [facility]
[2021-07-03] MEDS ORDERED: ASPIRIN CHEWABLE 81 MG TABLET. PO ONE (15:00)
[2021-07-03 15:02] LABS: INFLUENZA A PATIENT NEGATIVE (NEGATIVE); INFLUENZA B PATIENT NEGATIVE (NEGATIVE)
--- NOTE | 2021-07-03 15:02 | EKG ---
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
[2021-07-03 16:11] VITALS: BP 143/78
--- NOTE | 2021-07-03 16:11 | NUR ---
Patient arrived to room 656 via bed from ER at 1611. Patient A&OX4. VSS. No complaints of pain. 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 Slight weakness in left arm & left leg. The patient, MERON DAVIS, 60 y/o, F admitted by SAAD FOX MD, was given written information regarding hospital policies, unit procedures and contact persons. Valuables were checked and noted. Patient states she does not take her home medications or wear her oxygen often. Will continue to monitor.
--- NOTE | 2021-07-03 16:28 | PDOC2 ---
CONSULT Date of Consult Date of Consult DATE: 07/03/21 TIME: 16:14 Reason for Consult Reason for Consult: Left arm weakness that began promptly at 11 AM Referring Physician Referring Physician: Dr. Evans from the emergency room Identification/Chief Complaint Chief Complaint Left arm weakness Source Source: Patient History of Present Illness Reason for Visit: 60-year-old right-handed, obese woman who was in her normal state of health until 11 AM when her left hand became weak. She came to the emergency room and at 3 hours and 10 minutes after her weakness began, and after I was called from the emergency room, it was decided to give her TPA but the patient refused. Her NIH stroke scale was 3 (both legs cannot be held up for nonneurological reasons); blood pressure was 168/70 and blood sugar was normal. CT scan of the brain was negative for acute lesions and the CT angiogram showed no occlusion and no stenoses of any of the large vessels of the head and neck. The patient never had neurological symptoms previously. Past Medical History Cardiovascular: HTN Pulmonary: COPD CENTRAL NERVOUS SYSTEM: Other GI: No pertinent hx Heme/Onc: No pertinent hx Hepatobiliary: No pertinent hx Psych: Depression Musculoskeletal: Osteoarthritis Rheumatologic: No pertinent hx Infectious disease: No pertinent hx Renal/: Urinary Incontinence Endocrine: Diabetes Past Surgical History Past Surgical History: Cholecystectomy, , Other Family History Family History: Diabetes Social History ALCOHOL: none Current Problem List Problem List Problems Medical Problems: (1) Left arm weakness Status: Acute (2) Shortness of breath Status: Acute (3) Stroke Status: Acute Current Medications Current Medications Current Medications Iohexol (Omnipaque 300 Mg/ml) 75 ml 1X ONCE IV Last administered on 07/03/21at 13:59; Start 07/03/21 at 14:00; Stop 07/03/21 at 14:01; Status DC Info (CONTRAST GIVEN -- Rx MONITORING) 1 each PRN DAILY PRN MC SEE COMMENTS; Start 07/03/21 at 14:00; Stop 07/05/21 at 13:59 Aspirin (Aspirin Chewable) 324 mg 1X ONCE PO Last administered on 07/03/21at 15:21; Start 07/03/21 at 15:00; Stop 07/03/21 at 15:01; Status DC Active Scripts Active Protonix (Pantoprazole Sodium) 20 Mg Tablet. 1 Tab PO DAILY Ondansetron Odt (Ondansetron) 4 Mg Tab.rapdis 1 Tab PO PRN Q6-8HRS Medrol (Methylprednisolone) 4 Mg Tab.ds.pk 1 Pkg PO UD Prednisone 20 Mg Tablet 1 Tab PO DAILY Azithromycin Tablet (Azithromycin) 250 Mg Tablet 250 Mg PO DAILY 3 Days Proair Hfa (Albuterol Sulfate) 8.5 Gm Hfa.aer.ad 1 Puff INH PRN Q6HRS PRN 7 Days Lasix (Furosemide) 20 Mg Tablet 1 Tab PO Q12HR Reported Tramadol Hcl 50 Mg Tablet 50 Mg PO Q4HRS PRN Flovent 44MCG Hfa (Fluticasone Propionate) 10.6 Gm Aer.w.adap 2 Puff IH BID Atrovent Hfa (Ipratropium Martin) 12.9 Gm Hfa.aer.ad 2 Puff IH BID Carvedilol (Carvedilol) 3.125 Mg Tablet 3.125 Mg PO BID Mucinex (Guaifenesin) 600 Mg Tablet.er 600 Mg PO PRN QID PRN Cyclobenzaprine Hcl 10 Mg Tablet 10 Mg PO BID PRN Tessalon Perle (Benzonatate) 100 Mg Capsule 100 Mg PO BID PRN Dulera 200 Mcg/5 Mcg Inhaler (Mometasone/Formoterol) 13 Gm Hfa.aer.ad 13 Gm IH BID Novolog Mix 70-30 Flexpen Syrn (Insuln Asp Prt/Insulin Aspart) 100 Unit/1 Ml I nsuln.pen 45 Unit SQ [id number] Allergies Allergies: Coded Allergies: Nitrofurantoin Macrocrystal (Verified Allergy, Severe, Hives, 07/31/13) doxycycline (Verified Allergy, Severe, Hives, 07/31/13) nitrofurantoin (Verified Allergy, Severe, Hives, 07/31/13) Penicillins (Verified Allergy, Intermediate, 03/25/14) Physical Exam Physical Exam Neurologic Examination Mental Status Exam: Attention: Alert, awake and oriented to time, person and place but she cannot name the services tech or the previous president. Language: Speech is fluent without word finding difficulties or paraphasias. Comprehension is normal and there is no apraxia. Memory: Not tested Visual spatial skills: There is no visual neglect on double simultaneous stimulation Cranial Nerves: Cranial nerve I: Not tested Cranial nerve II: Visual fu are full and there is no vision to Cranial nerve III, IV and : EOMs have full range of motion PERRLAC at 2-1 mm Cranial nerve V: Normal facial sensation bilaterally Cranial nerve VII: Right nasolabial fold flattening (patient is partially edentulous) Cranial nerve VIII: Normal hearing to finger rubbing bilaterally Cranial nerve IX, X: Normal palate elevation Cranial nerve XI: Normal shoulder shrug Cranial nerve XII: Normal tongue protrusion bilateral movement Motor Examination: Strength at the left hand is 4/5 which includes the wrist flexion and extension; all other musculature of the left upper extremity, the ri ght upper extremity and bilateral lower extremities are 5/5. Deep tendon reflexes are 2/2 at the left upper extremity, 1/2 of the right upper extremity and 01/2 at both lower extremities. Babinski's signs are equivocal due to withdrawal. There are no involuntary movements Coordination is normal for zixesn-po-otyl and toe to finger testing at the 4 extremities. Station gait was not tested. Sensory Examination: Light touch, temperature and vibratory sensations are within normal limits at the upper extremities Cortical Sensory Functions: Graphesthesia is normal at both palms Vitals VITALS Vital Signs Date Time Temp Pulse Resp B/P (MAP) Pulse Ox O2 Delivery O2 Flow Rate FiO2 07/03/21 13:30 98.9 91 18 148/70 (96) 93 Room Air 98.9 Labs Labs Laboratory Tests Test 07/03/21 13:42 07/03/21 13:48 07/03/21 13:50 07/03/21 14:10 Influenza Type A Antigen Negative (NEGATIVE) Influenza Type B Antigen Negative (NEGATIVE) SARS-CoV-2 Antigen (Rapid) Negative (NEGATIVE) Glucose (Fingerstick) 178 mg/dL (70-99) White Blood Count 10.7 x10^3/uL (4.0-11.0) Red Blood Count 4.07 x10^6/uL (3.50-5.40) Hemoglobin 14.1 g/dL (12.0-15.5) Hematocrit 40.1 % (36.0-47.0) Mean Corpuscular Volume 99 fL (79-100) Mean Corpuscular Hemoglobin 35 pg (25-35) Mean Corpuscular Hemoglobin Concent 35 g/dL (31-37) Red Cell Distribution Width 12.6 % (11.5-14.5) Platelet Count 247 x10^3/uL (140-400) Neutrophils (%) (Auto) 77 % (31-73) Lymphocytes (%) (Auto) 15 % (24-48) Monocytes (%) (Auto) 8 % (0-9) Eosinophils (%) (Auto) 0 % (0-3) Basophils (%) (Auto) 0 % (0-3) Neutrophils # (Auto) 8.2 x10^3/uL (1.8-7.7) Lymphocytes # (Auto) 1.6 x10^3/uL (1.0-4.8) Monocytes # (Auto) 0.9 x10^3/uL (0.0-1.1) Eosinophils # (Auto) 0.0 x10^3/uL (0.0-0.7) Basophils # (Auto) 0.0 x10^3/uL (0.0-0.2) Sodium Level 135 mmol/L (136-145) Potassium Level 3.4 mmol/L (3.5-5.1) Chloride Level 99 mmol/L (98-107) Carbon Dioxide Level 27 mmol/L (21-32) Anion Gap 9 (6-14) Blood Urea Nitrogen 13 mg/dL (7-20) Creatinine 1.1 mg/dL (0.6-1.0) Estimated GFR (Cockcroft-Gault) 50.8 BUN/Creatinine Ratio 12 (6-20) Glucose Level 176 mg/dL (70-99) Calcium Level 8.6 mg/dL (8.5-10.1) Magnesium Level 1.9 mg/dL (1.8-2.4) Total Bilirubin 1.3 mg/dL (0.2-1.0) Aspartate Amino Transf (AST/SGOT) 20 U/L (15-37) Alanine Aminotransferase (ALT/SGPT) 12 U/L (14-59) Alkaline Phosphatase 143 U/L (46-116) Troponin I High Sensitivity 5 ng/L (4-50) PQ-Xtu-V-Type Natriuretic Peptide 346 pg/mL (0-124) Total Protein 7.7 g/dL (6.4-8.2) Albumin 3.0 g/dL (3.4-5.0) Albumin/Globulin Ratio 0.6 (1.0-1.7) Thyroid Stimulating Hormone (TSH) 1.588 uIU/mL (0.358-3.74) Prothrombin Time 13.0 SEC (11.7-14.0) Prothromb Time International Ratio 1.0 (0.8-1.1) Activated Partial Thromboplast Time 26 SEC (24-38) Laboratory Tests Test 07/03/21 13:42 07/03/21 13:48 07/03/21 13:50 07/03/21 14:10 Influenza Type A Antigen Negative (NEGATIVE) Influenza Type B Antigen Negative (NEGATIVE) SARS-CoV-2 Antigen (Rapid) Negative (NEGATIVE) Glucose (Fingerstick) 178 mg/dL (70-99) White Blood Count 10.7 x10^3/uL (4.0-11.0) Red Blood Count 4.07 x10^6/uL (3.50-5.40) Hemoglobin 14.1 g/dL (12.0-15.5) Hematocrit 40.1 % (36.0-47.0) Mean Corpuscular Volume 99 fL (79-100) Mean Corpuscular Hemoglobin 35 pg (25-35) Mean Corpuscular Hemoglobin Concent 35 g/dL (31-37) Red Cell Distribution Width 12.6 % (11.5-14.5) Platelet Count 247 x10^3/uL (140-400) Neutrophils (%) (Auto) 77 % (31-73) Lymphocytes (%) (Auto) 15 % (24-48) Monocytes (%) (Auto) 8 % (0-9) Eosinophils (%) (Auto) 0 % (0-3) Basophils (%) (Auto) 0 % (0-3) Neutrophils # (Auto) 8.2 x10^3/uL (1.8-7.7) Lymphocytes # (Auto) 1.6 x10^3/uL (1.0-4.8) Monocytes # (Auto) 0.9 x10^3/uL (0.0-1.1) Eosinophils # (Auto) 0.0 x10^3/uL (0.0-0.7) Basophils # (Auto) 0.0 x10^3/uL (0.0-0.2) Sodium Level 135 mmol/L (136-145) Potassium Level 3.4 mmol/L (3.5-5.1) Chloride Level 99 mmol/L (98-107) Carbon Dioxide Level 27 mmol/L (21-32) Anion Gap 9 (6-14) Blood Urea Nitrogen 13 mg/dL (7-20) Creatinine 1.1 mg/dL (0.6-1.0) Estimated GFR (Cockcroft-Gault) 50.8 BUN/Creatinine Ratio 12 (6-20) Glucose Level 176 mg/dL (70-99) Calcium Level 8.6 mg/dL (8.5-10.1) Magnesium Level 1.9 mg/dL (1.8-2.4) Total Bilirubin 1.3 mg/dL (0.2-1.0) Aspartate Amino Transf (AST/SGOT) 20 U/L (15-37) Alanine Aminotransferase (ALT/SGPT) 12 U/L (14-59) Alkaline Phosphatase 143 U/L (46-116) Troponin I High Sensitivity 5 ng/L (4-50) OC-Shj-G-Type Natriuretic Peptide 346 pg/mL (0-124) Total Protein 7.7 g/dL (6.4-8.2) Albumin 3.0 g/dL (3.4-5.0) Albumin/Globulin Ratio 0.6 (1.0-1.7) Thyroid Stimulating Hormone (TSH) 1.588 uIU/mL (0.358-3.74) Prothrombin Time 13.0 SEC (11.7-14.0) Prothromb Time International Ratio 1.0 (0.8-1.1) Activated Partial Thromboplast Time 26 SEC (24-38) Images Images See history of present illness Assessment/Plan Assessment/Plan I suspect a cortical stroke at the left frontal lobe hand region. tPA was refused by the patient. MRI of the brain 2D echocardiogram with bubble study PT and OT consults; SOLE BUFFER consult Fasting lipids and if her LDL is 70 or above she should be started on a statin or have her statin titrated for goal of less than 70 DVT prophylaxis Address all stroke risk factors and all cardiovascular risk factors CT angiograms of the head and neck have been Follow-up with neurology as an outpatient in 2 weeks after discharge If our search for an etiology for her stroke is negative she should have an event-related monitor or a Zio patch placed at discharge PAO JACKSON MD Jul 03, 2021 16:28
[2021-07-03 16:32] LABS: BILIRUBIN,URINE NEGATIVE (NEG); CLARITY,URINE CLEAR; COLOR,URINE AMBER; NITRITE,URINE POSITIVE (NEG); PROTEIN,URINE NEGATIVE (NEG-TRACE)
[2021-07-03 16:35] LABS: BACTERIA,URINE MANY /HPF (0-FEW); WBC,URINE 20-40 /HPF (0-4)
[2021-07-03] MEDS ORDERED: ACETAMINOPHEN 500 MG TABLET PO ONE (16:45)
[2021-07-03] MEDS ORDERED: KETOROLAC 30 MG/ML VIAL. IVP ONE (16:45)
[2021-07-03 16:56] LABS: CHOLESTEROL/HDL RATIO 3.7
--- NOTE | 2021-07-03 17:28 | RAD ---
MRI BRAIN WO Date: 07/03/2021 4:28 PM Indication: stroke, left arm weakness Comparison: CT head 07/03/2021. Technique: Multiplanar multisequence MRI of the brain was performed without intravenous contrast usin g the standard protocol. Findings: No acute infarct. No acute hemorrhage. There are a couple of punctate foci of gradient susceptibility artifact consistent with chronic microhemorrhages. The ventricles are normal in size and configurati on without hydrocephalus. Mild scattered FLAIR hyperintensities in the subcortical and periventricula r deep white matter, a nonspecific finding, most commonly seen with chronic small vessel ischemic dis ease. Mild generalized cerebral volume loss. The scalp and calvarium are normal. The pituitary and sella are normal. No Chiari malformation. The v isualized upper cervical spine is normal. Mild right maxillary sinus mucosal thickening. The visualized paranasal sinuses are clear. The mastoi d air cells are clear. Normal flow voids within the vertebral, basilar, and internal carotid arteries indicating patency. IMPRESSION: 1. No acute infarct, acute hemorrhage, mass, or hydrocephalus. 2. Mild scattered FLAIR hyperintensities in the subcortical and periventricular deep white matter, a nonspecific finding, most commonly seen with chronic small vessel ischemic disease. Electronically signed by: Delfino Adkins MD (07/03/2021 5:25 PM) [facility]
[2021-07-03 19:45] VITALS: BP 107/57
[2021-07-03] MEDS ORDERED: FURO20TA3 PO (20:15)
[2021-07-03] MEDS ORDERED: CYCL5TAB PO (20:15)
[2021-07-03] MEDS ORDERED: ASPI-886 PO (20:15)
[2021-07-03] MEDS ORDERED: SERT-268 PO (20:15)
[2021-07-03] MEDS ORDERED: MELO7.5T29 PO (20:15)
[2021-07-03] MEDS ORDERED: POTA-121 PO (20:15)
[2021-07-03] MEDS ORDERED: ATOR80TA72 PO (20:15)
[2021-07-03] MEDS ORDERED: MONT-38 PO (20:15)
[2021-07-03] MEDS ORDERED: OMEP40CA7 PO (20:15)
[2021-07-03] MEDS ORDERED: CARV3.123 PO (20:15)
[2021-07-03] MEDS ORDERED: SUCR1TAB PO (20:15)
[2021-07-03] MEDS ORDERED: LOSA100T14 PO (20:15)
[2021-07-03] MEDS ORDERED: ALBUTEROL SULFATE 2.5 MG/3 ML NEBU. INH PRN (22:30)
[2021-07-03] MEDS ORDERED: POTASSIUM CHLORIDE 20 MEQ TABLET.ER. PO ONE (22:30)
[2021-07-03 22:45] VITALS: BP 117/61
[2021-07-03] MEDS ORDERED: CYCLOBENZAPRINE 10 MG TABLET. PO PRN (22:45)
[2021-07-03] MEDS ORDERED: ALBUTEROL SULFATE 8GM INHALER. INH PRN (23:45)
[2021-07-04 03:35] VITALS: BP 114/62
--- NOTE | 2021-07-04 05:54 | NUR ---
Patient anxious re: "test results". SOA at times.
[2021-07-04 07:00] VITALS: BP 119/55
[2021-07-04] MEDS ORDERED: PANTOPRAZOLE 40 MG TABLET.DR. PO SCH (07:30)
[2021-07-04] MEDS ORDERED: POTASSIUM CHLORIDE 20 MEQ TABLET.ER. PO SCH (08:00)
[2021-07-04] MEDS ORDERED: ASPIRIN 325 MG TABLET PO SCH (08:00)
[2021-07-04 08:05] LABS: CALCIUM 8.6 mg/dL (8.5-10.1); CREATININE 0.9 mg/dL (0.6-1.0); GFR 64.1; POTASSIUM 3.9 mmol/L (3.5-5.1)
[2021-07-04] MEDS: SUCRALFATE 1 GM TABLET. PO SCH ×2 (08:44→17:04)
[2021-07-04] MEDS: CARVEDILOL 3.125 MG TABLET. PO SCH ×2 (08:45→17:05)
[2021-07-04] MEDS ORDERED: CYCLOBENZAPRINE 10 MG TABLET. PO SCH (09:00)
[2021-07-04] MEDS ORDERED: MONTELUKAST SODIUM 10 MG TABLET. PO SCH (09:00)
[2021-07-04] MEDS ORDERED: ATORVASTATIN CALCIUM 40 MG TABLET. PO SCH (09:00)
[2021-07-04] MEDS ORDERED: SERTRALINE 50 MG TABLET. PO SCH (09:00)
[2021-07-04] MEDS ORDERED: FUROSEMIDE 20 MG TABLET PO SCH (09:00)
[2021-07-04] MEDS ORDERED: ENOXAPARIN 40 MG/0.4 ML SYRINGE. SQ SCH (09:00)
[2021-07-04] MEDS ORDERED: LOSARTAN POTASSIUM 50 MG TABLET. PO SCH (09:00)
--- NOTE | 2021-07-04 09:27 | PDOC ---
Provider Note Date of Service: DATE: 07/04/21 TIME: 09:26 Provider Note Pt seen .H&P dictated.#[id number]. Justifications for Admission Other Justification SAAD FOX MD Jul 04, 2021 09:27
[2021-07-04] MEDS: CEPHALEXIN 250 MG CAPSULE. PO SCH ×2 (09:30→14:25)
--- NOTE | 2021-07-04 09:42 | HP ---
DATE OF SERVICE: 07/04/2021 ADMIT DATE: 07/03/2021 MEDICAL HISTORY AND PHYSICAL REASON FOR ADMISSION TO THE HOSPITAL: Left arm weakness. HISTORY OF PRESENT ILLNESS: The patient is a 60-year-old female. The patient noticed weakness in the left hand around 11:00. She came to the Emergency Room by 2-2:30 with left arm weakness and CT head was negative. The patient was recommended TPA, but the patient refused. Neurology was consulted, was given aspirin and the patient had an MRI later, did not show any acute stroke. The patient had a CT angiogram, no aneurysm and the patient says she is feeling better, had slight weakness with wrist drop in the left arm, slight weakness, but she is more worried about her lungs. The patient is a chronic smoker, smoked for so long, has been smoking more recently. PAST MEDICAL HISTORY: History of COPD, hypertension, anxiety, depression, chronic bladder incontinence and borderline diabetes. PAST SURGICAL HISTORY: Gallbladder surgery, . FAMILY HISTORY: Diabetes. SOCIAL HISTORY: Smokes 1.5 pack for 30 years. Denies alcohol, drug abuse. MEDICATIONS: The patient is on pain medications. REVIEW OF SYSTEMS: Worries about cough, short of breath. She has no chest pain. Has less worried about left arm weakness. PHYSICAL EXAMINATION: VITAL SIGNS: Temperature 98.9, pulse 91, respirations 18, blood pressure 148/70, O2 saturation 93 on room air. HEENT: Head is atraumatic. Pupils equal. Oral cavity, only few teeth present, bad dentition. NECK: Supple. Thyroid not enlarged. JVD not elevated. CHEST: Symmetrical COPD pattern. CARDIOVASCULAR: S1, S2, regular. LUNGS: Occasional wheezing. ABDOMEN: Soft. No mass palpable. EXTERNAL GENITALIA: No Elliott. RECTUM: Deferred. EXTREMITIES: No calf tenderness, no edema. NEUROLOGIC: Cranial nerves intact. No facial deviation. Left arm slightly weaker 4/5 when compared to the right side. The patient has a wrist drop. Left arm very minimal weakness 5- when compared to the right side. LABORATORY DATA: Shows a white count of 10, hemoglobin 14, platelets 247. INR 1.0. Electrolytes show sodium 135, potassium 3.4, chloride 99, bicarb 27, BUN 13, creatinine 1.1, glucose 176, bilirubin 1.3. LFTs normal. BNP 346. Troponin negative. TSH is normal. Urine nitrites positive, large leukocyte esterase, 11-20 rbc. COVID test rapid negative. Influenza was negative. Chest x-ray, no acute process. CT head, no abnormality. CT angiogram of the head and neck shows no evidence of vessel occlusion. MRI of the brain done later today without contrast, no acute infarct. FINAL IMPRESSION: 1. Left arm weakness, possible mini stroke. 2. Chronic obstructive pulmonary disease. 3. Urinary tract infection. 4. Smoker. 5. Hypertension. 6. Hyperlipidemia. PLAN: At this time, we will admit to the hospital. Neuro was consulted. The patient refused TPA in the Emergency Room and now started on aspirin. We will do echocardiogram and Holter to complete the stroke workup. The patient will be started on antibiotic for UTI. Smoking counseling was done. ANETA DR: REGINA/carlita TID: [id number]
--- NOTE | 2021-07-04 10:49 | NUR ---
SS following for discharge planning. SS reviewed pt chart and discussed with pt RN. Pt is from home with spouse and is currently requiring oxygen at two liters nasal canula. COVID19 negative. Cardiology and Neurology consulted. PO diet. PT/OT/ST ordered. Pt has home oxygen. SS will continue to follow for discharge planning.
[2021-07-04 11:00] VITALS: BP 99/58
--- NOTE | 2021-07-04 11:14 | PDOC2 ---
GHADA LAYTON LIFT DRIVER 07/04/21 1114: CARDIAC CONSULT DATE OF CONSULT Date of Consult DATE: 07/04/21 TIME: 11:07 REASON FOR CONSULT Reason for Consult: CVA workup REFERRING PHYSICIAN Referring Physician: Dr. Rowley SOURCE Source: Chart review, Patient HISTORY OF PRESENT ILLNESS HISTORY OF PRESENT ILLNESS This is a 60 yo female who presented secondary to left upper extremity weakness that began 3 hours prior to arrival. Reports yesterday before noon she developed weakness in her left hand. No weakness in the upper arm. Symptoms persisted so she came to the ED for further evaluation and treatment. She denies any dizziness, diaphoresis, or palpitations. Does reports some mild shortness of breath and cough x1 month productive of greenish sputum. PAST MEDICAL HISTORY Past Medical History Cardiovascular: HTN Pulmonary: COPD CENTRAL NERVOUS SYSTEM: Other (No pertinent history) GI: No pertinent hx Heme/Onc: No pertinent hx Hepatobiliary: No pertinent hx Psych: Depression (better no treatment) Musculoskeletal: Osteoarthritis Rheumatologic: No pertinent hx Infectious disease: No pertinent hx ENT: No pertinent hx Renal/: Urinary Incontinence Endocrine: Diabetes (2) Dermatology: No pertinent hx PAST SURGICAL HISTORY Past Surgical History Cholecystectomy, , Other (bladder lift) FAMILY HISTORY Family History: Heart Disease SOCIAL HISTORY Smoke: 1 pack per day ALCOHOL: none Drugs: None Lives: Alone CURRENT MEDICATIONS CURRENT MEDICATIONS Current Medications Medications (Trade) Dose Ordered Sig/Gilbert Route PRN Reason Start Time Stop Time Status Last Admin Dose Admin Iohexol (Omnipaque 300 Mg/ml) 75 ml 1X ONCE IV 07/03/21 14:00 07/03/21 14:01 DC 07/03/21 13:59 Aspirin (Aspirin Chewable) 324 mg 1X ONCE PO 07/03/21 15:00 07/03/21 15:01 DC 07/03/21 15:21 Carvedilol (Coreg) 3.125 mg BIDWMEALS PO 07/04/21 08:00 07/04/21 08:45 Furosemide (Lasix) 20 mg DAILY PO 07/04/21 09:00 07/04/21 08:46 Montelukast Sodium (Singulair) 10 mg DAILY PO 07/04/21 09:00 07/04/21 08:45 Potassium Chloride (Klor-Con) 20 meq DAILY08 PO 07/04/21 08:00 07/04/21 08:44 Sucralfate (Carafate) 1 gm BIDAC PO 07/04/21 07:30 07/04/21 08:44 Atorvastatin Calcium (Lipitor) 80 mg DAILY PO 07/04/21 09:00 07/04/21 08:50 Losartan Potassium (Cozaar) 100 mg DAILY PO 07/04/21 09:00 07/04/21 08:45 Pantoprazole Sodium (Protonix) 40 mg DAILYAC PO 07/04/21 07:30 07/04/21 08:46 Sertraline HCl (Zoloft) 100 mg DAILY PO 07/04/21 09:00 07/04/21 08:46 Aspirin (Froy Aspirin) 325 mg DAILYWBKFT PO 07/04/21 08:00 07/04/21 08:50 Potassium Chloride (Klor-Con) 40 meq 1X ONCE PO 07/03/21 22:30 07/03/21 22:32 DC 07/03/21 23:34 Enoxaparin Sodium (Lovenox 40mg Syringe) 40 mg DAILY SQ 07/04/21 09:00 07/04/21 08:47 Cyclobenzaprine HCl (Flexeril) 5 mg BID PO 07/04/21 09:00 07/04/21 08:46 Albuterol Sulfate (Ventolin Hfa) 2 puff PRN Q6HRS PRN INH SHORTNESS OF BREATH 07/03/21 23:45 07/03/21 23:49 ALLERGIES ALLERGIES: Coded Allergies: Nitrofurantoin Macrocrystal (Verified Allergy, Severe, Hives, 07/31/13) doxycycline (Verified Allergy, Severe, Hives, 07/31/13) nitrofurantoin (Verified Allergy, Severe, Hives, 07/31/13) Penicillins (Verified Allergy, Intermediate, 03/25/14) ROS Review of System 14 point ROS conducted with pertinent positives noted above in hPI PHYSICAL EXAM PHYSICAL EXAM General: Alert, Oriented X3, Cooperative, No acute distress HEENT: Atraumatic, Mucous membr. moist/pink Lungs: Other (diminished with faint wheeze) Heart: Regular rate (SR), Normal S1, Normal S2, Other (2/6 systolic murmur to LLS border) Abdomen: Soft, No tenderness Extremities: No cyanosis, No edema Skin: No breakdown, No significant lesion Neuro: Normal speech, Sensation intact, left wrist drop Psych/Mental Status: Mental status NL, Mood NL MUSCULOSKELETAL: Osteoarthritic changes both hands VITALS/I&O VITALS/I&O: Vital Signs Date Time Temp Pulse Resp B/P (MAP) Pulse Ox O2 Delivery O2 Flow Rate FiO2 07/04/21 08:45 87 114/62 07/04/21 08:05 Nasal Cannula 2.0 07/04/21 07:00 98.6 22 97 98.6 I & O 07/03/21 07/03/21 07/04/21 15:00 23:00 07:00 Intake Total 200 ml 500 ml Output Total 250 ml Balance -50 ml 500 ml LABS Lab: Laboratory Tests Test 07/03/21 13:42 07/03/21 13:48 07/03/21 13:50 07/03/21 14:10 Influenza Type A Antigen Negative (NEGATIVE) Influenza Type B Antigen Negative (NEGATIVE) SARS-CoV-2 Antigen (Rapid) Negative (NEGATIVE) Glucose (Fingerstick) 178 mg/dL (70-99) H White Blood Count 10.7 x10^3/uL (4.0-11.0) Red Blood Count 4.07 x10^6/uL (3.50-5.40) Hemoglobin 14.1 g/dL (12.0-15.5) Hematocrit 40.1 % (36.0-47.0) Mean Corpuscular Volume 99 fL (79-100) Mean Corpuscular Hemoglobin 35 pg (25-35) Mean Corpuscular Hemoglobin Concent 35 g/dL (31-37) Red Cell Distribution Width 12.6 % (11.5-14.5) Platelet Count 247 x10^3/uL (140-400) Neutrophils (%) (Auto) 77 % (31-73) H Lymphocytes (%) (Auto) 15 % (24-48) L Monocytes (%) (Auto) 8 % (0-9) Eosinophils (%) (Auto) 0 % (0-3) Basophils (%) (Auto) 0 % (0-3) Neutrophils # (Auto) 8.2 x10^3/uL (1.8-7.7) H Lymphocytes # (Auto) 1.6 x10^3/uL (1.0-4.8) Monocytes # (Auto) 0.9 x10^3/uL (0.0-1.1) Eosinophils # (Auto) 0.0 x10^3/uL (0.0-0.7) Basophils # (Auto) 0.0 x10^3/uL (0.0-0.2) Sodium Level 135 mmol/L (136-145) L Potassium Level 3.4 mmol/L (3.5-5.1) L Chloride Level 99 mmol/L (98-107) Carbon Dioxide Level 27 mmol/L (21-32) Anion Gap 9 (6-14) Blood Urea Nitrogen 13 mg/dL (7-20) Creatinine 1.1 mg/dL (0.6-1.0) H Estimated GFR (Cockcroft-Gault) 50.8 BUN/Creatinine Ratio 12 (6-20) Glucose Level 176 mg/dL (70-99) H Calcium Level 8.6 mg/dL (8.5-10.1) Magnesium Level 1.9 mg/dL (1.8-2.4) Total Bilirubin 1.3 mg/dL (0.2-1.0) H Aspartate Amino Transferase (AST) 20 U/L (15-37) Alanine Aminotransferase (ALT) 12 U/L (14-59) L Alkaline Phosphatase 143 U/L (46-116) H Troponin I High Sensitivity 5 ng/L (4-50) VN-Rvw-Y-Type Natriuretic Peptide 346 pg/mL (0-124) H Total Protein 7.7 g/dL (6.4-8.2) Albumin 3.0 g/dL (3.4-5.0) L Albumin/Globulin Ratio 0.6 (1.0-1.7) L Triglycerides Level 69 mg/dL (0-150) Cholesterol Level 161 mg/dL (0-200) LDL Cholesterol, Calculated 104 mg/dL (0-100) H VLDL Cholesterol, Calculated 14 mg/dL (0-40) Non-HDL Cholesterol Calculated 118 mg/dL (0-129) HDL Cholesterol 43 mg/dL (40-60) Cholesterol/HDL Ratio 3.7 Procalcitonin 0.12 ng/mL (0.00-0.10) H Thyroid Stimulating Hormone (TSH) 1.588 uIU/mL (0.358-3.74) Prothrombin Time 13.0 SEC (11.7-14.0) Prothrombin Time INR 1.0 (0.8-1.1) Activated Partial Thromboplast Time 26 SEC (24-38) Test 07/03/21 16:18 07/03/21 18:10 07/03/21 21:15 07/04/21 06:15 Urine Collection Type Unknown Urine Color Julia Urine Clarity Clear Urine pH 6.0 (<5.0-8.0) Urine Specific [place] >=1.030 (1.000-1.030) Urine Protein Negative mg/dL (NEG-TRACE) Urine Glucose (UA) Negative mg/dL (NEG) Urine Ketones (Stick) Negative mg/dL (NEG) Urine Blood Large (NEG) Urine Nitrite Positive (NEG) Urine Bilirubin Negative (NEG) Urine Urobilinogen Dipstick 4.0 mg/dL (0.2 mg/dL) Urine Leukocyte Esterase Large (NEG) Urine RBC 11-20 /HPF (0-2) Urine WBC 20-40 /HPF (0-4) Urine Squamous Epithelial Cells Few /LPF Urine Bacteria Many /HPF (0-FEW) Troponin I High Sensitivity 6 ng/L (4-50) 6 ng/L (4-50) Sodium Level 136 mmol/L (136-145) Potassium Level 3.9 mmol/L (3.5-5.1) Chloride Level 101 mmol/L (98-107) Carbon Dioxide Level 23 mmol/L (21-32) Anion Gap 12 (6-14) Blood Urea Nitrogen 15 mg/dL (7-20) Creatinine 0.9 mg/dL (0.6-1.0) Estimated GFR (Cockcroft-Gault) 64.1 Glucose Level 137 mg/dL (70-99) H Calcium Level 8.6 mg/dL (8.5-10.1) Laboratory Tests 07/03/21 13:50 Laboratory Tests 07/03/21 13:50 07/04/21 06:15 ECHOCARDIOGRAM ECHOCARDIOGRAM <Conclusion> The left ventricular systolic function is normal. The Ejection Fraction is 60%. There is normal LV segmental wall motion. Transmitral Doppler flow pattern is Grade II-pseudonormal filling dynamics. Trace mitral regurgitation. Trace tricuspid regurgitation with an estimated PAP of 34 mmHg. There is no evidence of significant pericardial effusion. DATE: 08/14/18 1403 ASSESSMENT/PLAN ASSESSMENT/PLAN 1. LUE weakness; MRI, CT head without evidence of acute stroke 2. Diastolic CHF with secondary pulmonary HTN 3. AE COPD with long-standing tobaccoism 4. Hypertension; controlled 5. Hyperlipidemia 6. Diabetes, II 7. UTI; as per IM Recommendations Echo with bubble ordered Lipids Secondary prevention PT/OT Oral Lasix therapy Outpatient event monitor as arranged Consider outpatient ischemic evaluation Further pending above. EDGARDO CHILDERS MD 07/05/21 0707: CARDIAC CONSULT ASSESSMENT/PLAN ASSESSMENT/PLAN Late entry for 07/04/2021 Patient seen and examined. Agree with above nurse practitioner note. I had a long discussion with the patient and her daughters regarding need for smoking cessation. Echocardiogram is grossly unremarkable. No evidence of PFO. Plan for outpatient event monitoring and stress testing given her chronic dyspnea which although might be related to her COPD issues. GHADA LAYTON APRN Jul 04, 2021 11:14 EDGARDO CHILDERS MD Jul 05, 2021 07:07
--- NOTE | 2021-07-04 11:45 | PDOC ---
PROGRESS NOTES Date of Service DATE: 07/04/21 TIME: 11:42 Diagnosis STROKE: CVA (Clinically, this occurred at the left hemisphere in the frontal lobe hand region despite the negative MRI brain), Embolic (Consider an embolic until proven otherwise) Assessment Problems Medical Problems: (1) Left arm weakness Status: Acute Specifically there is left wrist dorsiflexion/extension 1/5 and interosseous muscle 4/5 weakness with a negative MRI. The onset, historically, is not consistent with a radial nerve palsy and she has no sensory deficits at the posterior aspect of the left forearm. It could be that we cannot see small lesion on MRI or this has resolved despite the persistence of symptoms. Adult aspirin daily Statin has been initiated/titrate for LDL 104 with a goal of less than 70 2D echo with bubble study is pending Physical therapy and Occupational Therapy consults are pending Follow-up with neurology to weeks after discharge: It would be reasonable for an EMG/NCV of the radial nerve and musculature as an outpatient for completeness sake. Consider an eventlater monitor or Zio patch if the patient's 2D echo is negative Her blood pressure today is in the 90s/60s and it is suggested that her antihypertensive medications be decreased or held as to assure adequate cerebral perfusion (the nurse was advised to refer this information to the attending physician). The patient is okay for discharge neurologically, after echocardiogram, OT/PT consults, and blood pressure stabilization, if physical therapy and her attending are in agreement. (2) Shortness of breath Status: Acute (3) Stroke Status: Acute Subjective The patient denies any new left leg weakness even though she consents that her left leg fell during the NIH stroke scale tests yesterday afternoon (whereas the ER doctor said both legs fell scoring one-point for each leg on the NIH stroke scale). She reports that her left arm has somewhat improved dexterity but is still weak only distally. She also consents to the fact that she was up and about at 11:00 when suddenly her left hand became weak. Objective Vital Signs Date Time Temp Pulse Resp B/P (MAP) Pulse Ox O2 Delivery O2 Flow Rate FiO2 07/04/21 08:45 87 114/62 07/04/21 08:05 Nasal Cannula 2.0 07/04/21 07:00 98.6 22 97 98.6 Intake and Output 07/04/21 07:00 Intake Total 700 ml Output Total 250 ml Balance 450 ml Intake Oral 700 ml Output Urine Total 250 ml # Voids 3 PHYSICAL EXAM Neurologic Examination Mental Status Exam: Attention: Alert, awake and oriented to time, person and place but she cannot name the supervisor volunteer services or the previous president. Language: Speech is fluent without word finding difficulties or paraphasias. Comprehension is normal and there is no apraxia. Memory: Not tested Visual spatial skills: There is no visual neglect on double simultaneous stimulation Cranial Nerves: Cranial nerve I: Not tested Cranial nerve II: Visual fu are full and there is no vision to Cranial nerve III, IV and : EOMs have full range of motion PERRLAC at 2-1 mm Cranial nerve V: Normal facial sensation bilaterally Cranial nerve VII: Right nasolabial fold flattening (patient is partially edentulous) Cranial nerve VIII: Normal hearing to finger rubbing bilaterally Cranial nerve IX, X: Normal palate elevation Cranial nerve XI: Normal shoulder shrug Cranial nerve XII: Normal tongue protrusion bilateral movement Motor Examination: Strength at the left hand is decreased which includes the wrist extension and interosseous muscles (left wrist dorsiflexion/extension 1/5 and interosseous muscle 4/5 weakness), but flexion is 5/5; all other musculature of the left upper extremity, the right upper extremity and bilateral lower extremities are 5/5 except knee flexion and extension which is minimally weaker than the right. Deep tendon reflexes are 2/2 at the left upper extremity, 1/2 of the right upper extremity and 01/2 at both lower extremities. Babinski's signs are equivocal (extreme withdrawal}. There are no involuntary movements noted on today's examination Coordination is normal for [id number] and toe to finger testing at the 4 extremities including the weak left upper extremity. Station gait was not tested. Sensory Examination: Light touch, temperature and vibratory sensations are within normal limits at the upper extremities Cortical Sensory Functions: Graphesthesia is normal at both palms Review of Relevant I have reviewed the following items meka (where applicable) has been applied. Labs Laboratory Tests Test 07/03/21 13:42 07/03/21 13:48 07/03/21 13:50 07/03/21 14:10 Influenza Type A Antigen Negative (NEGATIVE) Influenza Type B Antigen Negative (NEGATIVE) SARS-CoV-2 Antigen (Rapid) Negative (NEGATIVE) Glucose (Fingerstick) 178 mg/dL (70-99) White Blood Count 10.7 x10^3/uL (4.0-11.0) Red Blood Count 4.07 x10^6/uL (3.50-5.40) Hemoglobin 14.1 g/dL (12.0-15.5) Hematocrit 40.1 % (36.0-47.0) Mean Corpuscular Volume 99 fL (79-100) Mean Corpuscular Hemoglobin 35 pg (25-35) Mean Corpuscular Hemoglobin Concent 35 g/dL (31-37) Red Cell Distribution Width 12.6 % (11.5-14.5) Platelet Count 247 x10^3/uL (140-400) Neutrophils (%) (Auto) 77 % (31-73) Lymphocytes (%) (Auto) 15 % (24-48) Monocytes (%) (Auto) 8 % (0-9) Eosinophils (%) (Auto) 0 % (0-3) Basophils (%) (Auto) 0 % (0-3) Neutrophils # (Auto) 8.2 x10^3/uL (1.8-7.7) Lymphocytes # (Auto) 1.6 x10^3/uL (1.0-4.8) Monocytes # (Auto) 0.9 x10^3/uL (0.0-1.1) Eosinophils # (Auto) 0.0 x10^3/uL (0.0-0.7) Basophils # (Auto) 0.0 x10^3/uL (0.0-0.2) Sodium Level 135 mmol/L (136-145) Potassium Level 3.4 mmol/L (3.5-5.1) Chloride Level 99 mmol/L (98-107) Carbon Dioxide Level 27 mmol/L (21-32) Anion Gap 9 (6-14) Blood Urea Nitrogen 13 mg/dL (7-20) Creatinine 1.1 mg/dL (0.6-1.0) Estimated GFR (Cockcroft-Gault) 50.8 BUN/Creatinine Ratio 12 (6-20) Glucose Level 176 mg/dL (70-99) Calcium Level 8.6 mg/dL (8.5-10.1) Magnesium Level 1.9 mg/dL (1.8-2.4) Total Bilirubin 1.3 mg/dL (0.2-1.0) Aspartate Amino Transf (AST/SGOT) 20 U/L (15-37) Alanine Aminotransferase (ALT/SGPT) 12 U/L (14-59) Alkaline Phosphatase 143 U/L (46-116) Troponin I High Sensitivity 5 ng/L (4-50) HZ-Hnb-W-Type Natriuretic Peptide 346 pg/mL (0-124) Total Protein 7.7 g/dL (6.4-8.2) Albumin 3.0 g/dL (3.4-5.0) Albumin/Globulin Ratio 0.6 (1.0-1.7) Triglycerides Level 69 mg/dL (0-150) Cholesterol Level 161 mg/dL (0-200) LDL Cholesterol, Calculated 104 mg/dL (0-100) VLDL Cholesterol, Calculated 14 mg/dL (0-40) Non-HDL Cholesterol Calculated 118 mg/dL (0-129) HDL Cholesterol 43 mg/dL (40-60) Cholesterol/HDL Ratio 3.7 Procalcitonin 0.12 ng/mL (0.00-0.10) Thyroid Stimulating Hormone (TSH) 1.588 uIU/mL (0.358-3.74) Prothrombin Time 13.0 SEC (11.7-14.0) Prothromb Time International Ratio 1.0 (0.8-1.1) Activated Partial Thromboplast Time 26 SEC (24-38) Test 07/03/21 16:18 07/03/21 18:10 07/03/21 21:15 07/04/21 06:15 Urine Collection Type Unknown Urine Color Julia Urine Clarity Clear Urine pH 6.0 (<5.0-8.0) Urine Specific [place] >=1.030 (1.000-1.030) Urine Protein Negative mg/dL (NEG-TRACE) Urine Glucose (UA) Negative mg/dL (NEG) Urine Ketones (Stick) Negative mg/dL (NEG) Urine Blood Large (NEG) Urine Nitrite Positive (NEG) Urine Bilirubin Negative (NEG) Urine Urobilinogen Dipstick 4.0 mg/dL (0.2 mg/dL) Urine Leukocyte Esterase Large (NEG) Urine RBC 11-20 /HPF (0-2) Urine WBC 20-40 /HPF (0-4) Urine Squamous Epithelial Cells Few /LPF Urine Bacteria Many /HPF (0-FEW) Troponin I High Sensitivity 6 ng/L (4-50) 6 ng/L (4-50) Sodium Level 136 mmol/L (136-145) Potassium Level 3.9 mmol/L (3.5-5.1) Chloride Level 101 mmol/L (98-107) Carbon Dioxide Level 23 mmol/L (21-32) Anion Gap 12 (6-14) Blood Urea Nitrogen 15 mg/dL (7-20) Creatinine 0.9 mg/dL (0.6-1.0) Estimated GFR (Cockcroft-Gault) 64.1 Glucose Level 137 mg/dL (70-99) Calcium Level 8.6 mg/dL (8.5-10.1) Laboratory Tests Test 07/03/21 13:42 07/03/21 13:48 07/03/21 13:50 07/03/21 14:10 Influenza Type A Antigen Negative (NEGATIVE) Influenza Type B Antigen Negative (NEGATIVE) SARS-CoV-2 Antigen (Rapid) Negative (NEGATIVE) Glucose (Fingerstick) 178 mg/dL (70-99) White Blood Count 10.7 x10^3/uL (4.0-11.0) Red Blood Count 4.07 x10^6/uL (3.50-5.40) Hemoglobin 14.1 g/dL (12.0-15.5) Hematocrit 40.1 % (36.0-47.0) Mean Corpuscular Volume 99 fL (79-100) Mean Corpuscular Hemoglobin 35 pg (25-35) Mean Corpuscular Hemoglobin Concent 35 g/dL (31-37) Red Cell Distribution Width 12.6 % (11.5-14.5) Platelet Count 247 x10^3/uL (140-400) Neutrophils (%) (Auto) 77 % (31-73) Lymphocytes (%) (Auto) 15 % (24-48) Monocytes (%) (Auto) 8 % (0-9) Eosinophils (%) (Auto) 0 % (0-3) Basophils (%) (Auto) 0 % (0-3) Neutrophils # (Auto) 8.2 x10^3/uL (1.8-7.7) Lymphocytes # (Auto) 1.6 x10^3/uL (1.0-4.8) Monocytes # (Auto) 0.9 x10^3/uL (0.0-1.1) Eosinophils # (Auto) 0.0 x10^3/uL (0.0-0.7) Basophils # (Auto) 0.0 x10^3/uL (0.0-0.2) Sodium Level 135 mmol/L (136-145) Potassium Level 3.4 mmol/L (3.5-5.1) Chloride Level 99 mmol/L (98-107) Carbon Dioxide Level 27 mmol/L (21-32) Anion Gap 9 (6-14) Blood Urea Nitrogen 13 mg/dL (7-20) Creatinine 1.1 mg/dL (0.6-1.0) Estimated GFR (Cockcroft-Gault) 50.8 BUN/Creatinine Ratio 12 (6-20) Glucose Level 176 mg/dL (70-99) Calcium Level 8.6 mg/dL (8.5-10.1) Magnesium Level 1.9 mg/dL (1.8-2.4) Total Bilirubin 1.3 mg/dL (0.2-1.0) Aspartate Amino Transf (AST/SGOT) 20 U/L (15-37) Alanine Aminotransferase (ALT/SGPT) 12 U/L (14-59) Alkaline Phosphatase 143 U/L (46-116) Troponin I High Sensitivity 5 ng/L (4-50) IJ-Bhz-B-Type Natriuretic Peptide 346 pg/mL (0-124) Total Protein 7.7 g/dL (6.4-8.2) Albumin 3.0 g/dL (3.4-5.0) Albumin/Globulin Ratio 0.6 (1.0-1.7) Triglycerides Level 69 mg/dL (0-150) Cholesterol Level 161 mg/dL (0-200) LDL Cholesterol, Calculated 104 mg/dL (0-100) VLDL Cholesterol, Calculated 14 mg/dL (0-40) Non-HDL Cholesterol Calculated 118 mg/dL (0-129) HDL Cholesterol 43 mg/dL (40-60) Cholesterol/HDL Ratio 3.7 Procalcitonin 0.12 ng/mL (0.00-0.10) Thyroid Stimulating Hormone (TSH) 1.588 uIU/mL (0.358-3.74) Prothrombin Time 13.0 SEC (11.7-14.0) Prothromb Time International Ratio 1.0 (0.8-1.1) Activated Partial Thromboplast Time 26 SEC (24-38) Test 07/03/21 16:18 07/03/21 18:10 07/03/21 21:15 07/04/21 06:15 Urine Collection Type Unknown Urine Color Julia Urine Clarity Clear Urine pH 6.0 (<5.0-8.0) Urine Specific [place] >=1.030 (1.000-1.030) Urine Protein Negative mg/dL (NEG-TRACE) Urine Glucose (UA) Negative mg/dL (NEG) Urine Ketones (Stick) Negative mg/dL (NEG) Urine Blood Large (NEG) Urine Nitrite Positive (NEG) Urine Bilirubin Negative (NEG) Urine Urobilinogen Dipstick 4.0 mg/dL (0.2 mg/dL) Urine Leukocyte Esterase Large (NEG) Urine RBC 11-20 /HPF (0-2) Urine WBC 20-40 /HPF (0-4) Urine Squamous Epithelial Cells Few /LPF Urine Bacteria Many /HPF (0-FEW) Troponin I High Sensitivity 6 ng/L (4-50) 6 ng/L (4-50) Sodium Level 136 mmol/L (136-145) Potassium Level 3.9 mmol/L (3.5-5.1) Chloride Level 101 mmol/L (98-107) Carbon Dioxide Level 23 mmol/L (21-32) Anion Gap 12 (6-14) Blood Urea Nitrogen 15 mg/dL (7-20) Creatinine 0.9 mg/dL (0.6-1.0) Estimated GFR (Cockcroft-Gault) 64.1 Glucose Level 137 mg/dL (70-99) Calcium Level 8.6 mg/dL (8.5-10.1) Medications Current Medications Iohexol (Omnipaque 300 Mg/ml) 75 ml 1X ONCE IV Last administered on 07/03/21at 13:59; Start 07/03/21 at 14:00; Stop 07/03/21 at 14:01; Status DC Info (CONTRAST GIVEN -- Rx MONITORING) 1 each PRN DAILY PRN MC SEE COMMENTS; Start 07/03/21 at 14:00; Stop 07/05/21 at 13:59 Aspirin (Aspirin Chewable) 324 mg 1X ONCE PO Last administered on 07/03/21at 15:21; Start 07/03/21 at 15:00; Stop 07/03/21 at 15:01; Status DC Ketorolac Tromethamine (Toradol 30mg Vial) 30 mg 1X ONCE IVP ; Start 07/03/21 at 16:45; Stop 07/03/21 at 16:48; Status DC Acetaminophen (Tylenol) 1,000 mg 1X ONCE PO ; Start 07/03/21 at 16:45; Stop 07/03/21 at 16:48; Status DC Albuterol Sulfate (Ventolin Neb Soln) 2.5 mg PRN Q6HRS PRN INH SHORTNESS OF BREATH; Start 07/03/21 at 22:30; Stop 07/03/21 at 23:42; Status DC Carvedilol (Coreg) 3.125 mg BIDWMEALS PO Last administered on 07/04/21at 08:45; Start 07/04/21 at 08:00 Furosemide (Lasix) 20 mg DAILY PO Last administered on 07/04/21at 08:46; Start 07/04/21 at 09:00 Montelukast Sodium (Singulair) 10 mg DAILY PO Last administered on 07/04/21at 08:45; Start 07/04/21 at 09:00 Potassium Chloride (Klor-Con) 20 meq DAILY08 PO Last administered on 07/04/21at 08:44; Start 07/04/21 at 08:00 Sucralfate (Carafate) 1 gm BIDAC PO Last administered on 07/04/21at 08:44; Start 07/04/21 at 07:30 Atorvastatin Calcium (Lipitor) 80 mg DAILY PO Last administered on 07/04/21at 08:50; Start 07/04/21 at 09:00 Cyclobenzaprine HCl (Flexeril) 5 mg PRN BID PRN PO MUSCLE SPASMS; Start 07/03/21 at 22:45; Stop 07/03/21 at 22:36; Status DC Losartan Potassium (Cozaar) 100 mg DAILY PO Last administered on 07/04/21at 08:45; Start 07/04/21 at 09:00 Pantoprazole Sodium (Protonix) 40 mg DAILYAC PO Last administered on 07/04/21at 08:46; Start 07/04/21 at 07:30 Sertraline HCl (Zoloft) 100 mg DAILY PO Last administered on 07/04/21at 08:46; Start 07/04/21 at 09:00 Aspirin (Froy Aspirin) 325 mg DAILYWBKFT PO Last administered on 07/04/21at 08:50; Start 07/04/21 at 08:00 Potassium Chloride (Klor-Con) 40 meq 1X ONCE PO Last administered on 07/03/21at 23:34; Start 07/03/21 at 22:30; Stop 07/03/21 at 22:32; Status DC Enoxaparin Sodium (Lovenox 40mg Syringe) 40 mg DAILY SQ Last administered on 07/04/21at 08:47; Start 07/04/21 at 09:00 Cyclobenzaprine HCl (Flexeril) 5 mg BID PO Last administered on 07/04/21at 08:46; Start 07/04/21 at 09:00 Albuterol Sulfate (Ventolin Hfa) 2 puff PRN Q6HRS PRN INH SHORTNESS OF BREATH Last administered on 07/03/21at 23:49; Start 07/03/21 at 23:45 Cephalexin HCl (Keflex) 500 mg TID PO ; Start 07/04/21 at 09:30 Active Scripts Active Proair Hfa (Albuterol Sulfate) 8.5 Gm Hfa.aer.ad 1 Puff INH PRN Q6HRS PRN 7 Days Reported Furosemide 20 Mg Tablet 1 Tab PO DAILY Carvedilol 3.125 Mg Tablet 1 Tab PO BID Sertraline Hcl 100 Mg Tablet 1 Tab PO DAILY Meloxicam 7.5 Mg Tablet 1 Tab PO DAILY Sucralfate 1 Gm Tablet 1 Tab PO BID Aspirin Ec (Aspirin) 81 Mg Tablet. 1 Tab PO DAILY Cyclobenzaprine Hcl 5 Mg Tablet 1 Tab PO BID Klor-Con M20 (Potassium Chloride) 20 Meq Tab.er.prt 1 Tab PO DAILY Omeprazole 40 Mg Capsule. 1 Cap PO DAILY Montelukast Sodium 10 Mg Tablet 1 Tab PO DAILY Atorvastatin Calcium 80 Mg Tablet 1 Tab PO DAILY Losartan Potassium 100 Mg Tablet 1 Tab PO DAILY Vitals/I & O Vital Sign - Last 24 Hours 07/03/21 07/03/21 07/03/21 07/03/21 13:30 14:08 14:21 14:36 Temp 98.9 98.9 Pulse 91 82 82 18 Resp 18 B/P (MAP) 148/70 (96) 118/61 (80) 119/61 (80) 119/63 (81) Pulse Ox 93 92 92 86 O2 Delivery Room Air Nasal Cannula Nasal Cannula Nasal Cannula O2 Flow Rate 2.0 2.0 2.0 07/03/21 07/03/21 07/03/21 07/03/21 14:51 15:21 16:11 16:30 Temp 98.4 98.4 Pulse 86 86 98 Resp B/P (MAP) 128/60 (82) 122/77 (92) 143/78 (99) Pulse Ox 92 92 97 O2 Delivery Nasal Cannula Nasal Cannula Nasal Cannula Nasal Cannula O2 Flow Rate 2.0 2.0 2.0 2.0 07/03/21 07/03/21 07/03/21 07/04/21 19:45 20:00 22:45 03:35 Temp 99.1 98.8 99.1 99.1 98.8 99.1 Pulse 88 87 87 Resp B/P (MAP) 107/57 (74) 117/61 (79) 114/62 (79) Pulse Ox 95 96 97 O2 Delivery Nasal Cannula Nasal Cannula Nasal Cannula Nasal Cannula O2 Flow Rate 2.0 2.0 2.0 3.0 07/04/21 07/04/21 07/04/21 07/04/21 07:00 08:05 08:45 08:45 Temp 98.6 98.6 Pulse 77 87 87 Resp B/P (MAP) 119/55 (76) 114/62 114/62 Pulse Ox 97 O2 Delivery Nasal Cannula Nasal Cannula O2 Flow Rate 2.0 2.0 Intake and Output 07/03/21 07/03/21 07/04/21 15:00 23:00 07:00 Intake Total 200 ml 500 ml Output Total 250 ml Balance -50 ml 500 ml Justicifation of Admission Dx: Justifications for Admission: Justification of Admission Dx: N/A PAO JACKSON MD Jul 04, 2021 11:45
[2021-07-04 15:00] VITALS: BP 112/56
--- NOTE | 2021-07-04 17:46 | CARD ---
MR#: [id number] Date of Study: 07/04/2021 Ordering Physician: ADRIANA SHANNON, Referring Physician: ADRIANA SHANNON, Tech: Pascale Burgos, [facility] APPROVED REPORT EXAM: Two-dimensional and M-mode echocardiogram with Doppler and color Doppler. Other Information Quality : AverageHR: 77bpm INDICATION COPD CVA/TIA Dyspnea Congestive Heart Failure RISK FACTORS Hypertension Diabetes Smoking 2D DIMENSIONS RVDd3.3 (2.9-3.5cm)Left Atrium(2D)2.7 (1.6-4.0cm) IVSd0.7 (0.7-1.1cm)Aortic Root(2D)3.3 (2.0-3.7cm) LVDd4.5 (3.9-5.9cm)LVOT Diameter2.1 (1.8-2.4cm) PWd0.8 (0.7-1.1cm)LVDs2.8 (2.5-4.0cm) FS (%) 36.9 %SV61.1 ml Aortic Valve AoV Peak Main.169.2cm/sAoV VTI33.2cm AO Peak GR.11.4mmHgLVOT VTI 13.87cm AO Mean GR.5mmHg Mitral Valve MV E Jiclgvuy00.8cm/sMV E Peak Gr.3mmHg MV DECEL [id number] A Oorvyscp67.8cm/s MV E Mean Gr.1mmHgE/A Ratio1.5 TDI Lateral E' P. V9.07cm/sMedial E' P. V8.50cm/s E/Lateral E'9.1E/Medial E'9.7 Tricuspid Valve TR P. [id number] [id number] TR Peak Gr.[id number] LEFT VENTRICLE The left ventricle is normal size. There is normal left ventricular wall thickness. The left ventricu lar systolic function is normal and the ejection fraction is within normal range. The Ejection Fracti on is 50-55%. There is normal LV segmental wall motion. The left ventricular diastolic function and f illing is normal for age. RIGHT VENTRICLE The right ventricle is normal size. There is normal right ventricular wall thickness. The right ventr icular systolic function is normal. ATRIA The left atrium is mildly dilated. The right atrium size is normal. The interatrial septum is intact with no evidence for an atrial septal defect or patent foramen ovale as noted on 2-D or Doppler imagi ng. Bubble study is negative. AORTIC VALVE The aortic valve is normal in structure and function. Doppler and Color Flow revealed no significant aortic regurgitation. There is no significant aortic valvular stenosis. Calculated aortic valve area is 1.38 cm2 with maximum pressure gradient of 12 mmHg and mean pressure gradient of 6 mmHg. MITRAL VALVE The mitral valve is normal in structure and function. There is no evidence of mitral valve prolapse. There is no mitral valve stenosis. Doppler and Color-flow revealed trace mitral regurgitation. TRICUSPID VALVE The tricuspid valve is normal in structure and function. Doppler and Color Flow revealed trace tricus pid regurgitation with an estimated PAP of 36 mmHg. There is no tricuspid valve stenosis. PULMONIC VALVE The pulmonic valve is not well visualized. Doppler and Color Flow revealed trace pulmonic valvular re gurgitation. GREAT VESSELS The aortic root is normal in size. The IVC is normal in size and collapses >50% with inspiration. PERICARDIAL EFFUSION There is no evidence of significant pericardial effusion. Critical Notification Critical Value: No <Conclusion> The left ventricle is normal size. The left ventricular systolic function is normal and the ejection fraction is within normal range. The Ejection Fraction is 50-55%. The interatrial septum is intact with no evidence for an atrial septal defect or patent foramen ovale as noted on 2-D or Doppler imaging. Bubble study is negative. Doppler and Color Flow revealed no significant aortic regurgitation. There is no significant aortic valvular stenosis. Doppler and Color-flow revealed trace mitral regurgitation. Doppler and Color Flow revealed trace tricuspid regurgitation with an estimated PAP of 36 mmHg. Signed by : Rajeev Munson MD Electronically Approved : 07/04/2021 17:46:04
[2021-07-04 20:19] VITALS: BP 140/62
--- NOTE | 2021-07-04 20:30 | NUR ---
Discharge Note: PT ASSURED SHE HAS ALL HER BELONGING. COULDNT WAIT FOR DR FOX TO PUT IN HER MEDS. SHE SAID SHE WILL CALL HIM TOMORROW. MERON DAVIS [address] Discharge instructions and discharge home medications reviewed with Patient and a copy given. All questions have been answered and understanding verbalized. The following instructions and handouts were given: Discontinued lines and drains: Peripheral IV intact. Patient discharged to Home or Self Care withFamily Membervia Wheelchair
[2021-07-04] MEDS ORDERED: ASPI325T8 PO (20:48)
[2021-07-04] MEDS ORDERED: CEPH250C PO (20:48)
[2021-07-04] MEDS ORDERED: LACTOBACILLUS RHAMNOSUS GG 1 CAPSULE. PO SCH (21:00)
--- NOTE | 2021-07-04 21:04 | NUR ---
pt stayed as long as she could. refused to wait longer, said she will call dr short in am. lc assessment completed
[2021-07-05 05:59] LABS: HEMOGLOBIN A1C 6.1 % (4.8-5.6)
[2021-07-05] MEDS ORDERED: LOSARTAN POTASSIUM 25 MG TABLET. PO SCH (09:00)
== END 2021-07-04 20:50 | disposition home or self-care (01) | DRG 65 ==
LOC: ER 13:23 → 6 SOUTH 14:54
PROVIDERS: ADMIT Internal Medicine; ATTEND Internal Medicine
DX: I63.9 Cerebral infarction, unspecified (principal); N39.0 Urinary tract infection, site not specified; I50.30 Unspecified diastolic (congestive) heart failure; E11.9 Type 2 diabetes mellitus without complications; E66.9 Obesity, unspecified; E78.5 Hyperlipidemia, unspecified; F17.210 Nicotine dependence, cigarettes, uncomplicated; I11.0 Hypertensive heart disease with heart failure; I27.20 Pulmonary hypertension, unspecified; J44.9 Chronic obstructive pulmonary disease, unspecified; R29.703 NIHSS score 3; Z79.82 Long term (current) use of aspirin; Z83.3 Family history of diabetes mellitus; Z90.710 Acquired absence of both cervix and uterus; F32.A Depression, unspecified; F41.9 Anxiety disorder, unspecified; M19.90 Unspecified osteoarthritis, unspecified site; Z68.31 Body mass index [BMI] 31.0-31.9, adult; Z88.0 Allergy status to penicillin; Z88.8 Allergy status to other drugs, medicaments and biological substances; Z90.49 Acquired absence of other specified parts of digestive tract; Z71.6 Tobacco abuse counseling; Z20.822 Contact with and (suspected) exposure to COVID-19
CPT/HCPCS: 36415; 70450; 70496; 70498; 70551; 71045; 80048; 80053; 80061; 81001; 82962; 83036; 83735; 83880; 84145; 84443; 84484; 85025; 85610; 85730; 87040; 87077; 87086; 87186; 87426; 87804; 93005; 93306; 99406; J1650; Q9967; U0003; U0005; 92610-GN; 97110-GO; 97110-GP; 99285-25; G0378